=== PATIENT | female | born 1935 | race Caucasian/White ===

== ENCOUNTER 2017-03-18 12:20 | Inpatient (IN) ==
[2017-03-18] MEDS ORDERED: NS 1,000 ML IV ONE (12:35)
[2017-03-18 13:14] LABS: URINE CULTURE NEEDED? NO; URINE MICRO REVIEW NEEDED? NO; URINE SOURCE CATH
[2017-03-18 13:17] LABS: BILIRUBIN URINE NEGATIVE (NEGATIVE); BLOOD URINE NEGATIVE (NEGATIVE); COLOR YELLOW; GLUCOSE URINE NEGATIVE (NEGATIVE); LEUKOCYTES URINE NEGATIVE (NEGATIVE); NITRITE URINE NEGATIVE (NEGATIVE); PROTEIN URINE 30 mg/dL (NEGATIVE); SP GRAVITY URINE 1.017; TURBIDITY URINE CLEAR (CLEAR); UROBILINOGEN URINE NORMAL (NORMAL)
[2017-03-18 13:19] LABS: UR EPITHELIAL CELLS <10 /HPF (<10); URINE BACTERIA NEGATIVE /HPF; URINE RBC <10 /HPF (<10); URINE WBC <10 /HPF (<10)
--- NOTE | 2017-03-18 13:31 | Diag Imaging Result Doc PS360 ---
EXAM: CHEST-PORTABLE HISTORY: AMS COMPARISON: 03/16/2017 FINDINGS: Heart size appears within normal limits. The lungs appear clear. There is no pleural effusion or pneumothorax is identified. Central venous catheter remains in place. IMPRESSION: No evidence of acute disease. Electronically signed by Mandeep Rey 03/18/2017 1:29 PM
--- NOTE | 2017-03-18 13:38 | Diag Imaging Result Doc PS360 ---
EXAM: HEAD W/O CONTRAST HISTORY: AMS COMPARISON: 07/29/2016 FINDINGS: There are atrophic changes and chronic microvascular ischemic changes similar to the previous exam. 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 There is no indication of recent infarct, although acute infarcts may not be immediately visible. There is no evidence of hemorrhage mass effect or midline shift. IMPRESSION: Atrophic changes and chronic ischemic changes similar to 07/29/2016. No visible acute process. No hemorrhage or mass effect. Electronically signed by Mandeep Rey 03/18/2017 1:35 PM
[2017-03-18 13:40] LABS: UR AMPHETAMINES QUAL NONE DETECTED (NONE DETECT); UR BARBITUATES QUAL NONE DETECTED (NONE DETECT); UR BENZODIAZEPIN QUAL PRESUMPTIVE POSITIVE (NONE DETECT); UR CANNABINOIDS QUAL NONE DETECTED (NONE DETECT); UR COCAINE QUAL NONE DETECTED (NONE DETECT); UR METHADONE QUAL NONE DETECTED (NONE DETECT); UR OPIATES QUAL NONE DETECTED (NONE DETECT); UR OXYCODONE QUAL NONE DETECTED (NONE DETECT); UR PCP QUAL NONE DETECTED (NONE DETECT)
[2017-03-18 13:56] LABS: I-STAT BE 3 mmoll (-2-3); I-STAT GLUCOSE 159 mg/dL (70-105); I-STAT HCO3 27.5 mmoll (22.0-26.0); I-STAT HEMATOCRIT 43 % (38-51); I-STAT HEMOGLOBIN 14.6 g/dL (11.5-17.5); I-STAT IONIZED CALCIUM 1.23 mmoll (1.12-1.32); I-STAT K 3.4 mmoll (3.5-4.9); I-STAT PCO2 41.4 mmHg (35.0-45.0); I-STAT SO2 92 % (95-98); I-STAT SODIUM 140 mmoll (138-146); I-STAT TCO2 29 mmoll (23-27)
[2017-03-18 14:32] LABS: MANUAL DIFF NEEDED? NO
[2017-03-18 14:41] LABS: BASO% 0.2 % (0.0-0.8); EOS# 0.04 X1000 (0.0-0.7); EOS% 0.4 % (0.0-10.0); HEMATOCRIT 36.3 % (37.0-47.0); HEMOGLOBIN 11.7 g/dL (12.0-16.0); IMM GRAN# 0.03 X1000 (0.0-0.04); IMM GRAN% 0.3 % (0.0-0.5); LYMPH# 2.33 X1000 (1.2-3.4); MCHC 32.2 g/dL (33-37); MCV 93.1 FL (81-99); MONO% 12.6 % (1.7-9.3); MPV 11.8 FL (7.4-10.4); NEUT% 65.5 % (42.2-75.2); PLT 226 X1000 (130-400)
[2017-03-18 14:51] LABS: INR 1.13; PTT 28.8 Seconds (22.0-36.0)
[2017-03-18 14:58] LABS: ALBUMIN 3.3 g/dL (3.5-5.0); CALCIUM 9.1 mg/dL (8.8-10.2); POTASSIUM 3.2 mmol/L (3.5-5.1); TOTAL BILIRUBIN 0.46 mg/dL (0.20-1.00); TOTAL PROTEIN 6.9 g/dL (6.3-8.3)
[2017-03-18] MEDS ORDERED: KLOR-CON PO ONE (15:51)
--- NOTE | 2017-03-18 15:58 | PROVIDER DOCUMENTATION ---
This chart was entered by Rose Manuel Scribe, acting as scribe for Jann Irizarry MD. HPI-Neurological Disorder - General Chief Complaint: Weakness Stated Complaint: WEAKNESS/AMS/ FAILURE TO THRIVE Time Seen by Provider: 03/18/17 12:29 Source: family Allergies/Adverse Reactions: Patient Allergies Allergy/AdvReac Type Severity Reaction Status Date / Time levofloxacin [From Levaquin] Allergy Mild ITCHING Verified 03/18/17 12:34 Home Medications: Home Medication List Medication Instructions Recorded Confirmed Last Taken Type Esomeprazole Magnesium 40 mg PO QAM 09/15/16 03/18/17 03/16/17 10:00 History Ramipril 2.5 mg PO BID 09/15/16 03/16/17 03/18/17 09:00 History Simvastatin 20 mg PO DAILY 09/15/16 03/18/17 03/16/17 10:00 History Isosorbide Mononitrate E.r. [Imdur] 30 mg PO DAILY #60 tablet 09/18/16 03/18/17 03/16/17 10:00 Rx Baclofen 10 mg PO BID #30 tablet 03/16/17 03/18/17 03/17/17 12:00 Rx Furosemide [Furosemide] 20 mg PO DAILY 03/16/17 03/18/17 03/17/17 11:00 History Amlodipine [Norvasc] 5 mg PO DAILY 03/18/17 03/18/17 03/18/17 09:00 History Clonazepam [Klonopin] 0.5 mg PO BID PRN PRN 03/18/17 03/18/17 03/18/17 09:00 History Esomeprazole [Nexium] 40 mg PO DAILY 03/18/17 03/18/17 Unknown History Gabapentin [Neurontin] 100 mg PO QAM 03/18/17 03/18/17 03/18/17 09:00 History Hydralazine [Apresoline] 25 mg PO TID 03/18/17 03/18/17 03/18/17 09:00 History - History of Present Illness-Neuro Nature of Presenting Problem: 81 yo WF is brought to ED with cc of lethargy, weakness, and AMS. reports pt was seen in this ED 3 days ago, diagnosed with dehydration, and sent home. Pt's condition has continued to worsen, and now she can no longer walk. EMS reports that pt was oriented x 1 and had to be carried. Pt has hx of non- Hodgkin's lymphoma for which she still has a port, but reports it has been in remission. Upon arrival to ED, pt is poorly responsive. Severity: reports: moderate, severe Onset/Duration: reports: 3 days ago (Pt was treated and released from here for dehydration. Symptoms worsening since then.) Timing: reports: still present, getting worse Context: reports: other (Pt no longer able to walk at all. Pt not fully oriented. Family reports this is deviation from baseline.) Character of Altered Mental Status: reports: disoriented, confused, decreased responsiveness. denies: combative Any recent trauma/injury?: reports: none Character of Deficits: reports: new weakness, decreased ability to stand, decreased ability to walk Cognitive Baseline: alert, oriented x3 Gait Baseline: uses a walker Recently seen or treated by another doctor?: Yes (Treated for dehydration 3 days ago in this ED. ) Review of Systems - Adult - REVIEW OF SYSTEMS - ADULT ROS:: ROS per family Constitutional: reports: fatique. denies: chills, fever Eyes: reports: no symptoms reported. denies: discharge, dry eyes Ears, Nose, Mouth & Throat: reports: no symptoms reported. denies: ear discharge, hoarseness Cardiovascular: reports: no symptoms reported. denies: edema, irregular heart rate Respiratory: reports: no symptoms reported. denies: cough, wheezing Gastrointestinal: reports: poor appetite. denies: vomiting Genitourinary: reports: no symptoms reported. denies: discharge, frequency Musculoskeletal: reports: muscle weakness Integumentary: reports: no symptoms reported. denies: hives, itching Neurological: reports: other (AMS, generalized weakness) Psychiatric: reports: no symptoms reported. denies: alcohol/drug dependence, emotional problems Endocrine: reports: no symptoms reported. denies: cold intolerance, heat intolerance Hematologic/Lymphatic: reports: no symptoms reported. denies: easy bruising, low blood count Allergic/Immunologic: reports: no symptoms reported. denies: asthma, eczema All Other Systems: Reviewed and Negative Past History - Adult - PAST MEDICAL HISTORY-ADULT Review of Records: reports: Old Records Reviewed, Nursing Assessment Review, Medications Reviewed Major Childhood Illnesses: reports: denies history Cardiovascular: reports: HTN, hyperlipidemia Respiratory: reports: pneumonia (frequent, aspiration) Gastrointestinal: reports: denies history Obstetrical/Gynecological: reports: denies history Genitourinary: reports: denies history Musculoskeletal: reports: chronic pain (back), intervertebral disc disease Neurological: reports: denies history Endocrine/Immune: reports: Diabetes Other Conditions: reports: other cancer (Non-Hodgkins Lymphoma) - PRIOR SURGERIES/PROCEDURES Surgical/Procedure History: reports: recent surgery, appendectomy, cholecystectomy, back/neck (recent back surgery) - IMMUNIZATION STATUS Childhood Immunizations: See Nurse Assessment Flu Vaccine: See Nurse Assessment - FAMILY HISTORY Family History: reviewed, not pertinent Physical Exam- Neurological - Physical Exam-Neuro Initial Vital Signs Reviewed: Yes General Appearance: lethargic, slow to respond Eye Exam: bilateral eye: normal inspection, PERRL HENMT: normocephalic/atraumatic, moist mucous membranes Head Injury: no evidence of injury Neck: full range of motion Respiratory: chest non-tender, lungs clear, normal breath sounds Cardiovascular: normal peripheral pulses, regular rate, rhythm, no edema Abdominal Exam: normal bowel sounds, non tender, soft Lymphatic: no adenopathy Extremity: negative: normal gait quality review trainer Exam: normal speech. negative: normal hearing, abnormal eye position, abnormal gag reflex, facial asymmetry, facial droop, facial paresthesias, facial weakness, tongue deviation to R, tongue deviation to L Coordination/Gait: abnormal gait (Pt cannot walk at all.) Motor/Sensory: no motor deficit, no sensory deficit. negative: no pronator drift Neurologic: grossly normal, no motor/sensory deficits Integumentary: normal color, normal turgor Psych/Mental Status: other (Pt is able to answer questions well but thought she was at [facility], [place].) - Glascow Coma Scale Best Eye Response: (4) open spontaneously Best Verbal Response: (5) oriented Best Motor Response: (6) obeys commands Total Glascow Score: 15 Progress - PLAN OF CARE/RESULTS Progress/Plan/Lab Results: Vital Signs - 8 hr 03/18/17 12:20 03/18/17 14:01 03/18/17 15:39 Temperature 98.7 F Pulse Rate 68 66 82 Respiratory Rate 16 22 Blood Pressure 151/72 131/62 136/60 O2 Sat by Pulse Oximetry 96 95 96 Laboratory Results - last 24 hr 03/18/17 03/18/17 03/18/17 12:49 12:55 12:55 WBC RBC Hgb Hct MCV MCH MCHC RDW Std Deviation Plt Count MPV Immature Gran % (Auto) Neut % (Auto) Lymph % (Auto) [place] % (Auto) Eos % (Auto) Baso % (Auto) Immature Gran # (Auto) Neut # (Auto) Lymph # (Auto) [place] # (Auto) Eos # (Auto) Baso # (Auto) PT INR PTT (Actin FS) POC pH 7.430 POC pCO2 41.4 POC pO2 62.0 POC HCO3 27.5 H POC Total CO2 29 H POC Base Excess 3 POC O2 Saturation 92 L POC Hemoglobin 14.6 POC Hematocrit 43 POC Sodium 140 POC Potassium 3.4 L POC Glucose 159 H POC Ioniz Calcium 1.23 Sodium Potassium Chloride Carbon Dioxide Anion Gap BUN Creatinine Estimated GFR/1.73 m2 BUN/Creatinine Ratio Glucose Calculated Osmolality Calcium Total Bilirubin AST ALT Alkaline Phosphatase Creatine Kinase Troponin T Total Protein Albumin Globulin Albumin/Globulin Ratio Lipase Plasma Lactate Urine Source CATH Urine Color YELLOW Urine Turbidity CLEAR Urine pH 6.0 Ur Specific [place] 1.017 Urine Protein 30 A Ur Glucose (Stick) NEGATIVE Ur Ketones (Stick) NEGATIVE Urine Blood NEGATIVE Urine Nitrite NEGATIVE Urine Bilirubin NEGATIVE Urobilinogen Dipstick NORMAL Urine Leukocytes NEGATIVE Urine WBC (Auto) <10 Urine RBC (Auto) <10 U Epithel Cells (Auto) <10 Urine Bacteria (Auto) NEGATIVE Urine Opiates Screen NONE DETECTED Ur Oxycodone Screen NONE DETECTED Ur Methadone, Qual NONE DETECTED Ur Barbiturates Screen NONE DETECTED Ur Phencyclidine Scrn NONE DETECTED Ur Amphetamines Screen NONE DETECTED U Benzodiazepines Scrn PRESUMPTIVE POSITIVE A Urine Cocaine Screen NONE DETECTED U Cannabinoids Screen NONE DETECTED Plasma/Serum Ethyl Alc 03/18/17 03/18/17 03/18/17 13:40 14:20 14:20 WBC 11.09 H RBC 3.90 L Hgb 11.7 L Hct 36.3 L MCV 93.1 MCH 30.0 MCHC 32.2 L RDW Std Deviation 13.5 Plt Count 226 MPV 11.8 H Immature Gran % (Auto) 0.3 Neut % (Auto) 65.5 Lymph % (Auto) 21.0 [place] % (Auto) 12.6 H Eos % (Auto) 0.4 Baso % (Auto) 0.2 Immature Gran # (Auto) 0.03 Neut # (Auto) 7.27 H Lymph # (Auto) 2.33 [place] # (Auto) 1.40 H Eos # (Auto) 0.04 Baso # (Auto) 0.02 PT INR PTT (Actin FS) POC pH POC pCO2 POC pO2 POC HCO3 POC Total CO2 POC Base Excess POC O2 Saturation POC Hemoglobin POC Hematocrit POC Sodium POC Potassium POC Glucose POC Ioniz Calcium Sodium Potassium Chloride Carbon Dioxide Anion Gap BUN Creatinine Estimated GFR/1.73 m2 BUN/Creatinine Ratio Glucose Calculated Osmolality Calcium Total Bilirubin AST ALT Alkaline Phosphatase Creatine Kinase Troponin T Total Protein Albumin Globulin Albumin/Globulin Ratio Lipase Plasma Lactate 1.3 Urine Source Urine Color Urine Turbidity Urine pH Ur Specific [place] Urine Protein Ur Glucose (Stick) Ur Ketones (Stick) Urine Blood Urine Nitrite Urine Bilirubin Urobilinogen Dipstick Urine Leukocytes Urine WBC (Auto) Urine RBC (Auto) U Epithel Cells (Auto) Urine Bacteria (Auto) Urine Opiates Screen Ur Oxycodone Screen Ur Methadone, Qual Ur Barbiturates Screen Ur Phencyclidine Scrn Ur Amphetamines Screen U Benzodiazepines Scrn Urine Cocaine Screen U Cannabinoids Screen Plasma/Serum Ethyl Alc 03/18/17 03/18/17 03/18/17 14:20 14:20 14:20 WBC RBC Hgb Hct MCV MCH MCHC RDW Std Deviation Plt Count MPV Immature Gran % (Auto) Neut % (Auto) Lymph % (Auto) [place] % (Auto) Eos % (Auto) Baso % (Auto) Immature Gran # (Auto) Neut # (Auto) Lymph # (Auto) [place] # (Auto) Eos # (Auto) Baso # (Auto) PT 12.0 H INR 1.13 PTT (Actin FS) 28.8 POC pH POC pCO2 POC pO2 POC HCO3 POC Total CO2 POC Base Excess POC O2 Saturation POC Hemoglobin POC Hematocrit POC Sodium POC Potassium POC Glucose POC Ioniz Calcium Sodium 134 L Potassium 3.2 L Chloride 96 L Carbon Dioxide 28 Anion Gap 10 BUN 20 Creatinine 0.9 Estimated GFR/1.73 m2 60 BUN/Creatinine Ratio 22 Glucose 139 H Calculated Osmolality 273 Calcium 9.1 Total Bilirubin 0.46 AST 11 ALT 5 L Alkaline Phosphatase 101 Creatine Kinase 43 Troponin T 0.024 Total Protein 6.9 Albumin 3.3 L Globulin 3.6 Albumin/Globulin Ratio 0.9 Lipase 12 L Plasma Lactate Urine Source Urine Color Urine Turbidity Urine pH Ur Specific [place] Urine Protein Ur Glucose (Stick) Ur Ketones (Stick) Urine Blood Urine Nitrite Urine Bilirubin Urobilinogen Dipstick Urine Leukocytes Urine WBC (Auto) Urine RBC (Auto) U Epithel Cells (Auto) Urine Bacteria (Auto) Urine Opiates Screen Ur Oxycodone Screen Ur Methadone, Qual Ur Barbiturates Screen Ur Phencyclidine Scrn Ur Amphetamines Screen U Benzodiazepines Scrn Urine Cocaine Screen U Cannabinoids Screen Plasma/Serum Ethyl Alc Orders Category Date Time Status Cardiac Monitoring DIRECTED Care 03/18/17 12:34 Active Finger Stick Blood Sugar (ED) DIRECTED Care 03/18/17 12:34 Active Burrell Cath Insertion ORDERED Care 03/18/17 12:58 Completed Saline Loc NOW Care 03/18/17 12:34 Active CHEST-PORTABLE [RAD] Stat Exams 03/18/17 12:34 Completed HEAD W/O CONTRAST [CT] Stat Exams 03/18/17 12:34 Completed ALCOHOL BLOOD Stat Lab 03/18/17 14:20 Completed BLOOD CULTURE [BLDCUL] Stat Lab 03/18/17 13:40 Results CBC WITH ELECTRONIC DIFF [HEME] Stat Lab 03/18/17 14:20 Completed CK PROFILE [SP CHEM] Stat Lab 03/18/17 14:20 Completed COMPREHENSIVE METABOLIC PANEL [CHEM] Stat Lab 03/18/17 14:20 Completed I-STAT 8 [RESP] Routine Lab 03/18/17 12:49 Completed LACTATE, PLASMA [CHEM] Stat Lab 03/18/17 13:40 Completed LIPASE [CHEM] Stat Lab 03/18/17 14:20 Completed PROTIME WITH INR [COAG] Stat Lab 03/18/17 14:20 Completed PTT [COAG] Stat Lab 03/18/17 14:20 Completed TROPONIN T Stat Lab 03/18/17 14:20 Completed URINALYSIS W/POSS RFLX CULT-1 [URINALYSIS] Stat Lab 03/18/17 12:55 Completed URINE DRUG SCREEN Stat Lab 03/18/17 12:55 Completed 0.9% Sodium Chloride Inj [Ns] 1,000 ml Med 03/18/17 12:35 Active IV 150 mls/hr Potassium Chloride E.r. [Klor-Con] Med 03/18/17 15:51 Discontinued 40 meq PO NOW ONE Pulse Oximetry Stat Oth 03/18/17 12:34 Active EKG [EKG] Stat Ther 03/18/17 12:34 Ordered Result Diagrams: 03/18/17 14:20 03/18/17 14:20 - EKG 1 Time of EKG reading by physician:: 14:31 EKG Read and Signed by:: Jann Irizarry EKG Interpretation (*Must complete 3 of following elements*): Abnormal (LVH with repolarization abnormality. Inferior infarct, age undetermined. Anteroseptal infarct, age undetermined.) Rate: 67 Rhythm: Sinus QRS: LVH (with repolarization abnormality) - XRAY 1 XRAY Study: Chest Impression: Normal ( FINDINGS: Heart size appears within normal limits. The lungs appear clear. There is no pleural effusion or pneumothorax is identified. Central venous catheter remains in place.) XRAY Interpretation: NAD (per radiology) - CT/MRI 1 CT Study: Head Impression: Abnormal (There are atrophic changes and chronic microvascular ischemic changes similar to the previous exam. 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 There is no indication of recent infarct, although acute infarcts may not be immediately visible.) CT Results: NAD (per radiology) - CONSULTS/PCP/HOSPITALIST Notification #1 *Consult/PCP/Hospitalist*: Dr. Retana Time Discussed: 15:57 Reason/Comments: Admit to Dr. Retana Consult Disposition: Admit Departure - Departure Time of Disposition Decision: 15:57 DIAGNOSIS: Altered mental status, Hypokalemia, Generalized weakness Disposition: ADMITTED INPATIENT 09 Certified Medical Emergency: Emergent Condition: Stable Referrals and Follow-Ups: Rahat Mcginnis MD [Primary Care Provider] - - Critical Care Note This patient required my direct & personal management of CC.: No Attestation - Physician/ SHADI Attestation Patient care was provided by Advanced Practice Provider:: No This chart was documented by the indicated scribe, (Rose Manuel Scribe) and accurately reflects the services I performed and decisions made by me, Jann Irizarry MD, as attested by the provider's signature.
--- NOTE | 2017-03-18 17:04 | EKG Report ---
Test Performed on : 03/18/2017 2:31:29 PM Test Reason : AMS Blood Pressure : / mmHG Vent. Rate : 067 BPM Atrial Rate : 067 BPM P-R Int : 172 ms QRS Dur : 098 ms QT Int : 444 ms P-R-T Axes : 077 -27 137 degrees QTc Int : 469 ms Normal sinus rhythm. Left ventricular hypertrophy with repolarization abnormality Inferior infarct , age undetermined Anteroseptal infarct , age undetermined Abnormal ECG When compared with ECG of 15-SEP-2016 02:16, Vent. rate has increased BY 28 BPM Left bundle branch block is no longer present Anteroseptal infarct is now present Inferior infarct is now present Unconfirmed Result
--- NOTE | 2017-03-18 17:18 | HISTORY AND PHYSICAL ---
PRIMARY CARE PHYSICIAN: Dr. Mcginnis. CHIEF COMPLAINT: Weakness/AMS. HISTORY OF PRESENT ILLNESS: Mrs. Pompa is a 81-year-old female with a history of non- Hodgkin's lymphoma, in remission. She also has a history of hypertension, hyperlipidemia, chronic back pain, diabetes mellitus, who presents from home with multiple days of worsening mental status and weakness. Patient is unable to give any type of history at this time secondary to mental status. History is obtained after talking with the family who is at the bedside and chart review. Apparently she has had continuous worsening of her mental status, to the point of complete confusion and she now and just lays in bed or sits in a chair all day. She is confused on. Her felt like he could not care for her any more so he brought her here to the ER. There has not been any chills or fever. She has not been complaining of anything with the exception of her chronic back and neck pain. When she got to the ER today she had a head CT done which showed chronic changes but nothing acute. Her chest x-ray was also negative for acute process. She is clearly confused but she follows commands with global weakness but no acute focal deficits. Her laboratory data shows some mild hypokalemia and hyponatremia but otherwise unremarkable. There does not appear to be any type of infection at this time. We are now going to admit her for further treatment and evaluation. PAST MEDICAL HISTORY: 1. Non-Hodgkin's lymphoma, in remission. 2. Hypertension. 3. Hyperlipidemia. 4. Diabetes mellitus. 5. Chronic pain. 6. Coronary artery disease. 7. GERD. 8. Paroxysmal atrial fibrillation. PAST SURGICAL HISTORY: She has had appendectomy, cholecystectomy, back and neck surgery. SOCIAL HISTORY: Patient lives at home with her . Apparently she has quite frequent falls. She quit smoking some time ago. There is no alcohol or drug use. REVIEW OF SYSTEMS: Unable to be obtained. FAMILY HISTORY: Noncontributory. ALLERGIES: To Levaquin. HOME MEDICATIONS: Norvasc 5 mg daily, baclofen 10 mg p.o. b.i.d., Klonopin 0.5 mg p.o. b.i.d., Nexium 40 mg daily, magnesium 40 mg a.m., Lasix 20 mg daily, Neurontin 100 mg a.m., Apresoline 25 mg t.i.d., isosorbide mononitrate 30 mg daily, ramipril 2.5 mg b.i.d., simvastatin 20 mg daily. PHYSICAL EXAMINATION: VITAL SIGNS: Blood pressure is 136/60, heart rate 82, respiratory rate 22, O2 saturation 96% on room air, temperature is 98.7 degrees. GENERAL: This is a frail and elderly appearing, 81-year-old female, lying in hospital bed, no acute distress. NEUROLOGIC: The patient is awake with her eyes open but she does not answer any orientation questions correctly. She is able to tell us her 1st name. She follows commands without any focal deficits. She does have generalized weakness. HEENT: Head is atraumatic, normocephalic. Pupils are equal, round, and reactive to light. Oral mucosa is dry. Trachea is midline. No JVD or carotid bruits. CHEST: Diminished at the bases but otherwise clear to auscultation bilaterally. CV: Regular rate and rhythm. S1, S2 is noted. There is a 1/6 murmur appreciated. GI: Soft, nondistended, nontender. Bowel sounds positive. EXTREMITIES: Without edema, clubbing, or cyanosis. Pulses are diminished but palpable bilaterally. DIAGNOSTIC DATA: Head CT shows atrophic changes and chronic ischemic changes but nothing acute. Chest x-ray is negative for acute process. WBC 11.09, hemoglobin 11.7, hematocrit 36.3, platelet count 226,000. INR 1.13. ABG, pH 7.43, CO2 41, O2 62, bicarb 27.5. Sodium 134, potassium 3.2, chloride 96, CO2 28, anion gap 10, BUN 20, creatinine 0.9, glucose 139, calcium 9.1, bilirubin 0.46, AST 11, ALT 5, alkaline phosphatase 101. CK 43. Troponin 0.024. Albumin 3.3. Lipase 12. Cath urine is unremarkable. She is positive for benzodiazepines. ASSESSMENT AND PLAN: 1. Toxic metabolic encephalopathy: Possibly a combination of medications on top of dehydration. There does not appear to be any infectious nidus at this point and head CT does not show anything acute. We will continue treatment of anything underlying metabolically that we find. For now that would consist of fluids. 2. Hyponatremia/hypochloremia: Likely hypovolemic. Will check urine studies and hydrate. 3. Hypokalemia. This has been replaced in the ER. Will also be sure to check a magnesium. 4. Failure to thrive: Will consult physical therapy and social work as the patient may need long- term care. 5. Hypertension: Chronic and stable. Continue home medications. 6. Non-Hodgkin's lymphoma: Aware. 7. Hyperlipidemia: Chronic and stable. Continue home medications. 8. Gastroesophageal reflux disease: Chronic and stable. Continue home medications. 9. Deep vein thrombosis prophylaxis with Lovenox. 10. Coronary artery disease: Patient denies any chest pain or shortness of breath. We will continue to monitor telemetry. Dictated by JEFFREY Richardson for Francisco Javier Medina MD cc: JEFFREY Richardson MD Michael C. Donham, MD
[2017-03-18] MEDS: APRESOLINE PO SCH (21:59)
[2017-03-19 05:09] LABS: HEMATOCRIT 37.6 % (37.0-47.0); HEMOGLOBIN 11.8 g/dL (12.0-16.0); MCH 29.9 PG (27-31); MCHC 31.4 g/dL (33-37); MCV 95.2 FL (81-99); MPV 12.2 FL (7.4-10.4); RBC 3.95 XMIL (4.2-5.4)
[2017-03-19 05:35] LABS: AGAP 14; BUN 17 mg/dL (8-22); CHLORIDE 103 mmol/L (98-107); COSMO 284; POTASSIUM 3.8 mmol/L (3.5-5.1); SODIUM 142 mmol/L (136-145); TCO2 25 mmol/L (25-35)
[2017-03-19] MEDS: PRILOSEC PO SCH (06:27)
[2017-03-19] MEDS ORDERED: NORVASC PO SCH (09:00)
[2017-03-19] MEDS: ZOCOR PO SCH (09:21)
[2017-03-19] MEDS: IMDUR PO SCH (09:21)
[2017-03-19] MEDS: NEURONTIN PO SCH (09:21)
[2017-03-19] MEDS: APRESOLINE PO SCH ×4 (09:24→17:24)
--- NOTE | 2017-03-19 11:35 | PROGRESS NOTE ---
DATE: 03/19/2017 SUBJECTIVE: This patient looks better today. She is still complaining about neck pain. She is more alert and she is more oriented. Family members at the bedside. OBJECTIVE: Vital Signs: Temperature 98.2 degrees, pulse 66, respiratory rate 16, blood pressure 171/62, oxygen saturation 98 on 2 L of nasal cannula. HEENT: Head normocephalic. No trauma. PERRLA. Neck: Not supple. It is a little bit rigid and painful to palpation, central trachea. No masses. Chest: Clear to auscultation. No wheezing. No rales. Cardiovascular: RRR. Abdomen: Soft, nontender, nondistended. Positive bowel sounds. Extremities: No edema. No clubbing. No cyanosis. Decreased muscle mass. Neurological: The patient is alert. She is oriented x3. No focal neurological deficits but extreme weakness. LABORATORY: WBC 9.8, hemoglobin 11.8, hematocrit 37.6, platelets 235,000. Sodium 142, potassium 3.8, chloride 103, bicarbonate 25, BUN 17. Creatinine 0.8, glucose 83, calcium 9. ASSESSMENT AND PLAN: 1. Toxic metabolic encephalopathy likely related to dehydration and benzodiazepine treatment. I do not think this patient has an infection. We will continue to monitor. 2. Hyponatremia and hypokalemia resolved. 3. Hyperlipidemia. Continue with simvastatin. 4. Hypertension. The blood pressure has been elevated, but this patient has been getting normal saline. I will stop the normal saline to see how she does and I will continue her home medications. 5. Neck pain. I can feel some kind of rigidity and pain with movement. I will ask for an x-ray AP and lateral. 6. GERD. Continue with home medication. 7. DVT prophylaxis with Lovenox. 8. History of coronary artery disease. This patient denies chest pain or shortness of breath. We will continue to monitor with telemetry. cc: Francisco Javier Medina MD
--- NOTE | 2017-03-19 11:53 | Diag Imaging Result Doc PS360 ---
CERVICAL SPINE 2-VIEWS - 03/19/2017 INDICATION: Neck pain TECHNIQUE: COMPARISON: 09/15/2016 FINDINGS: Stable right chest port. Detail is very poor particularly below the C4 level. IMPRESSION: Very poor exam. Electronically signed by Ruddy Viveros 03/19/2017 11:50 AM
[2017-03-20 06:25] LABS: HEMATOCRIT 37.7 % (37.0-47.0); HEMOGLOBIN 12.1 g/dL (12.0-16.0); MCH 29.8 PG (27-31); MCHC 32.1 g/dL (33-37); MCV 92.9 FL (81-99); RBC 4.06 XMIL (4.2-5.4)
[2017-03-20 06:46] LABS: AGAP 15; BUN 13 mg/dL (8-22); CALCIUM 9.1 mg/dL (8.8-10.2); CHLORIDE 99 mmol/L (98-107); COSMO 278; POTASSIUM 3.9 mmol/L (3.5-5.1); SODIUM 139 mmol/L (136-145); TCO2 25 mmol/L (25-35)
[2017-03-20] MEDS: PRILOSEC PO SCH (07:30)
[2017-03-20] MEDS: TYLENOL PO PRN (07:30)
[2017-03-20] MEDS: NEURONTIN PO SCH ×2 (07:50→09:55)
[2017-03-20] MEDS: IMDUR PO SCH (09:55)
[2017-03-20] MEDS: ZOCOR PO SCH (09:55)
[2017-03-20] MEDS: NORVASC PO SCH ×2 (09:56→22:58)
[2017-03-20] MEDS: APRESOLINE PO SCH ×3 (10:00→16:56)
--- NOTE | 2017-03-20 16:19 | PROGRESS NOTE ---
DATE: 03/20/2017 SUBJECTIVE: This patient is resting comfortably on the bed, she looks a little bit better today. She is more awake and more oriented. No family members at the bedside. OBJECTIVE: Vital Signs: Temperature 98 degrees, pulse 80, respiratory rate 18, blood pressure 180/66, oxygen saturation 93% on room air. HEENT: Head normocephalic. No trauma. PERRLA. Neck: Not supple. It is a little bit rigid and painful to palpation. Central trachea. No masses. Chest: Clear to auscultation. No wheezing. No rales. Cardiovascular: RRR. Abdomen: Soft, nontender, nondistended. Positive bowel sounds. Extremities: No edema. No clubbing. No cyanosis. Decreased muscle mass. Neurological: The patient is alert. She is oriented x3. No focal neurological deficit but she has generalized weakness. LABORATORY: WBC 12.8, hemoglobin 12.1, hematocrit 37.7, platelets 233,000. Sodium 139, potassium 3.9, chloride 99, bicarbonate 25, BUN 13, creatinine 0.8, glucose 112, calcium 9.1. ASSESSMENT AND PLAN: 1. Toxic metabolic encephalopathy likely related to dehydration and benzodiazepine treatment. I do not think this patient has an infection. We will continue to monitor. 2. Hyponatremia and hypokalemia, resolved. 3. Hyperlipidemia. Continue with simvastatin. 4. Hypertension. Blood pressure has been elevated. I increased the amount of amlodipine from 5 mg daily to 5 mg twice a day, and hydralazine from 25 mg twice a day to 50 three times a day. We will monitor. 5. Neck pain. As per the patient, this is a little bit better. I will continue with the same treatment. 6. Gastroesophageal reflux disease. Continue with home medication. 7. Deep venous thrombosis prophylaxis with Lovenox. 8. History of coronary artery disease. At this moment this patient is not having chest pain or shortness of breath. We will continue to monitor this patient in telemetry. cc: Francisco Javier Medina MD
[2017-03-20] MEDS: HUMULIN R SUBQ SCH ×2 (16:34→22:24)
[2017-03-21] MEDS: HUMULIN R SUBQ SCH ×3 (06:10→17:33)
[2017-03-21] MEDS: PRILOSEC PO SCH (06:10)
[2017-03-21 06:14] LABS: HEMATOCRIT 35.9 % (37.0-47.0); HEMOGLOBIN 11.6 g/dL (12.0-16.0); MCH 29.7 PG (27-31); MCHC 32.3 g/dL (33-37); MCV 92.1 FL (81-99); MPV 12.1 FL (7.4-10.4); RBC 3.9 XMIL (4.2-5.4)
[2017-03-21 07:12] LABS: CALCIUM 8.9 mg/dL (8.8-10.2); POTASSIUM 3.3 mmol/L (3.5-5.1)
[2017-03-21] MEDS: TYLENOL PO PRN (07:21)
[2017-03-21] MEDS ORDERED: KLOR-CON PO ONE (07:44)
[2017-03-21] MEDS: APRESOLINE PO SCH ×3 (09:17→17:32)
[2017-03-21] MEDS: IMDUR PO SCH (09:18)
[2017-03-21] MEDS: NEURONTIN PO SCH (09:18)
[2017-03-21] MEDS: ZOCOR PO SCH (09:18)
[2017-03-21] MEDS: NORVASC PO SCH ×2 (09:18→23:59)
[2017-03-21] MEDS: MIRALAX PO SCH (09:19)
--- NOTE | 2017-03-21 11:18 | PROGRESS NOTE ---
DATE: 03/21/2017 SUBJECTIVE: This patient is lying on the bed. She looks comfortable. She is still complaining of neck pain. She is more awake and alert today, and she is more oriented as well. No family members at the bedside water. My plan is to keep this patient until Wednesday and hopefully get a rehab center for her. OBJECTIVE: Vital Signs: Temperature 98.4 degrees, pulse 73, respiratory rate 20, blood pressure 158/57, oxygen saturation 95% on room air. HEENT: Head normocephalic. No trauma. PERRLA. Neck: Painful to palpation and mobilization. Central trachea. Chest: Clear to auscultation. No wheezing. No rales. Cardiovascular: RRR. Abdomen: Soft, nontender, nondistended. Positive bowel sounds. Extremities: No edema. No clubbing. No cyanosis. Decreased muscle mass. Neurological Examination: The patient is alert and oriented x3. No focal deficits. She has generalized weakness. Laboratory Data: WBC 11.8, hemoglobin 11.6, hematocrit 35.9, platelets 230,000. Sodium 137, potassium 3.3, chloride 97, bicarbonate 24, BUN 21, creatinine 0.9, glucose 103, calcium 8.9. ASSESSMENT AND PLAN: 1. Toxic metabolic encephalopathy, likely related with dehydration and benzodiazepine treatment. I do not think this patient has an infection. We will continue to monitor. 2. Volume depletion, resolved. 3. Hyponatremia, resolved. 4. Hypokalemia. I will replace the potassium today. 5. Hyperlipidemia. Continue with simvastatin. 6. Hypertension, better controlled. We will continue with the same management. 7. Neck pain. I will ask for a CT scan of the neck today without contrast. 8. Gastroesophageal reflux disease. Continue with home medication. 9. Deep venous thrombosis prophylaxis with Lovenox. 10. History of coronary artery disease. She is not having chest pain or shortness of breath. We will continue with the same management for now and monitoring this patient with telemetry. cc: Francisco Javier Medina MD
--- NOTE | 2017-03-21 14:52 | Diag Imaging Result Doc PS360 ---
EXAM: NECK W/O CONTRAST HISTORY: pain when swallowing TECHNIQUE: CT of the neck without contrast COMMENT: The nasopharynx is unremarkable. There is some beam hardening artifact from the patient's hearing aids. There is also artifact arising from dental work. The salivary glands appear to be symmetrical. The epiglottis is not enlarged. There is some prominent nodes in the aorticopulmonary window. The right thyroid lobe is enlarged and inhomogeneous. The oropharynx and hypopharynx are unremarkable otherwise. No acute pulmonary abnormalities are present in the visualized portion of the chest. There is apical scarring bilaterally. IMPRESSION: No definite visceral abnormalities. Enlarged right thyroid lobe. Electronically signed by Evaristo Yarbrough 03/21/2017 2:49 PM
[2017-03-22] MEDS: HUMULIN R SUBQ SCH ×3 (00:03→11:11)
[2017-03-22] MEDS: PRILOSEC PO SCH (06:18)
[2017-03-22 06:19] LABS: MANUAL DIFF NEEDED? NO
[2017-03-22 06:29] LABS: BASO% 0.1 % (0.0-0.8); EOS# 0.17 X1000 (0.0-0.7); EOS% 1.6 % (0.0-10.0); HEMATOCRIT 35.7 % (37.0-47.0); HEMOGLOBIN 11.3 g/dL (12.0-16.0); IMM GRAN# 0.02 X1000 (0.0-0.04); IMM GRAN% 0.2 % (0.0-0.5); LYMPH# 2.68 X1000 (1.2-3.4); LYMPH% 25.3 % (20.5-51.1); MCH 29.4 PG (27-31); MCHC 31.7 g/dL (33-37); MONO# 1.29 X1000 (0.11-0.59); MONO% 12.2 % (1.7-9.3); MPV 11.6 FL (7.4-10.4); NEUT% 60.6 % (42.2-75.2); PLT 265 X1000 (130-400); RBC 3.84 XMIL (4.2-5.4)
[2017-03-22 07:09] LABS: CALCIUM 8.9 mg/dL (8.8-10.2); POTASSIUM 4.2 mmol/L (3.5-5.1)
[2017-03-22 07:24] VITALS: BP 162/58
[2017-03-22] MEDS: MIRALAX PO SCH (08:56)
[2017-03-22] MEDS: NORVASC PO SCH (08:57)
[2017-03-22] MEDS: IMDUR PO SCH (08:57)
[2017-03-22] MEDS: APRESOLINE PO SCH ×2 (08:57→14:00)
[2017-03-22] MEDS: NEURONTIN PO SCH (08:57)
[2017-03-22] MEDS: TYLENOL PO PRN (08:58)
[2017-03-22] MEDS: ZOCOR PO SCH (08:58)
--- NOTE | 2017-03-22 11:27 | DISCHARGE SUMMARY ---
ADMISSION DATE: 03/18/2017 DISCHARGE DATE: 03/22/2017 CONSULTATIONS: None. PERTINENT PROCEDURES: 1. Head CT show atrophic changes, chronic ischemic changes similar to 07/29/2016. No visible acute process. No hemorrhage or mass effect. 2. Cervical spine x-ray showed a stable right chest port, detail very poor, particularly below C4 level. 3. Neck CT showed no definite visceral abnormalities, enlarged right thyroid lobe. DISCHARGE DIAGNOSES: 1. Toxic metabolic encephalopathy secondary to dehydration and benzodiazepine treatment, resolved. 2. Fluid volume depletion, resolved. 3. Hyponatremia, resolved. 4. Hypokalemia, resolved. 5. Hyperlipidemia. Continue statin. 6. Hypertension. Better controlled. 7. Neck pain. CT did not show anything acute. 8. Gastroesophageal reflux disease. Continue with PPI. 9. Coronary artery disease. Stable. 10. Non-Hodgkin's lymphoma history, in remission. HOSPITAL COURSE: Ms. Pompa is a 81-year-old female with a history of non-Hodgkin's lymphoma in remission, hypertension, hyperlipidemia, diabetes mellitus, chronic pain, coronary artery disease, GERD, paroxysmal atrial fibrillation. Patient presented from home to the ED with multiple days of worsening mental status and weakness. Per family report, her mental status worsened to the point of complete confusion and she would just lie in bed or sit in a chair all day. The patient had a head CT in the ED that showed chronic changes but nothing acute. Chest x- ray was negative for acute process. Laboratory data showed mild hypokalemia and hyponatremia but otherwise unremarkable. There did not appear to be any infectious processes. The patient was admitted for toxic metabolic encephalopathy. Combinations of medications on top of dehydration. She was started on IV fluids. Head CT was negative. As well, physical therapy was consulted for failure to thrive. The patient continued to complain of neck pain. She had a cervical spine x- ray that was a poor exam. She underwent a CT of the neck that did not show anything acute. The patient did become more awake and alert as well as oriented. She was able to work with physical therapy. Senior Scientist was contacted for rehab placement. The patient will be sent to [facility] today. VITAL SIGNS: Temperature is 98.1 degrees, heart rate 63, respirations 16, blood pressure 102/58, O2 is 95% on room air. DISCHARGE DIET: Regular. DISCHARGE MEDICATIONS: As per Dr. Retana. Please see MAR. FOLLOWUP: The patient will be discharged to [facility] rehab. She can follow up with her primary care physician, Dr. Rahat Mcginnis in 2 weeks. Patient can return to the ED for any worsening of symptoms. DISCHARGE TIME: Thirty minutes. Dictated by JEFFREY Woodard for Francisco Javier Medina MD cc: MD Francisco Javier Ortiz MD
== END 2017-03-22 15:42 ==
LOC: ED 12:20 → 4N 17:26
PROVIDERS: ATTEND Internal Medicine

== ENCOUNTER 2017-04-19 10:14 | Inpatient (IN) ==
[2017-04-19] MEDS ORDERED: NS 1,000 ML IV ONE ×2 (10:35→15:21)
[2017-04-19] MEDS ORDERED: NARCAN IV ONE (10:38)
[2017-04-19 10:45] LABS: MANUAL DIFF NEEDED? NO
[2017-04-19 10:50] LABS: ALLEN TEST YES; BLOOD TYPE ARTERIAL; DRAW SITE R RADIAL; METHB 1.3 % (0.0-1.5); O2(CT) 13.7 mL/dL (15.0-23.0); PCO2(98.6) 47 mmHg (35-45); PO2(98.6) 74 mmHg (60-100); SAMPLE BLOOD; SAO2 95.8 % (95.0-100.0); THB 10.3 g/dL (11.5-17.4); pH(98.6) 7.39 (7.35-7.45)
[2017-04-19 10:51] LABS: URINE MICRO REVIEW NEEDED? NO; URINE SOURCE CLEAN CATCH
[2017-04-19 10:51] LABS: MODALITY ROOM AIR
[2017-04-19 10:51] LABS: BASO% 0.2 % (0.0-0.8); EOS# 0.09 X1000 (0.0-0.7); HEMATOCRIT 33.9 % (37.0-47.0); HEMOGLOBIN 10.6 g/dL (12.0-16.0); LYMPH# 3.06 X1000 (1.2-3.4); LYMPH% 33.6 % (20.5-51.1); MCH 29.3 PG (27-31); MCHC 31.3 g/dL (33-37); MCV 93.6 FL (81-99); MONO% 8.8 % (1.7-9.3); MPV 11.7 FL (7.4-10.4); NEUT% 56.4 % (42.2-75.2); PLT 261 X1000 (130-400); RBC 3.62 XMIL (4.2-5.4)
[2017-04-19 11:02] LABS: BILIRUBIN URINE NEGATIVE (NEGATIVE); BLOOD URINE NEGATIVE (NEGATIVE); COLOR YELLOW; GLUCOSE URINE NEGATIVE (NEGATIVE); LEUKOCYTES URINE MODERATE (NEGATIVE); NITRITE URINE NEGATIVE (NEGATIVE); PH URINE 5.5; PROTEIN URINE TRACE mg/dL (NEGATIVE); SP GRAVITY URINE 1.017; TURBIDITY URINE CLEAR (CLEAR); UROBILINOGEN URINE NORMAL (NORMAL)
[2017-04-19 11:04] LABS: UR EPITHELIAL CELLS >10 /HPF (<10); URINE BACTERIA 1+ /HPF; URINE CULTURE NEEDED? YES; URINE RBC <10 /HPF (<10)
--- NOTE | 2017-04-19 11:12 | Diag Imaging Result Doc PS360 ---
CHEST-1 VIEW - 04/19/2017 INDICATION: aloc TECHNIQUE: COMPARISON: 03/18/2017 FINDINGS: Stable right chest port in good position. Heart size and pulmonary vascularity remain normal. Infiltrate IMPRESSION: No acute disease or change from prior. Electronically signed by Ruddy Viveros 04/19/2017 11:10 AM
[2017-04-19 11:13] LABS: ALBUMIN 3.3 g/dL (3.5-5.0); CALCIUM 8.9 mg/dL (8.8-10.2); POTASSIUM 5.1 mmol/L (3.5-5.1); TOTAL BILIRUBIN 0.24 mg/dL (0.20-1.00); TOTAL PROTEIN 6.3 g/dL (6.3-8.3)
[2017-04-19 11:13] LABS: UR AMPHETAMINES QUAL NONE DETECTED (NONE DETECT); UR BARBITUATES QUAL NONE DETECTED (NONE DETECT); UR BENZODIAZEPIN QUAL NONE DETECTED (NONE DETECT); UR CANNABINOIDS QUAL PRESUMPTIVE POSITIVE (NONE DETECT); UR COCAINE QUAL NONE DETECTED (NONE DETECT); UR METHADONE QUAL NONE DETECTED (NONE DETECT); UR OPIATES QUAL NONE DETECTED (NONE DETECT); UR OXYCODONE QUAL NONE DETECTED (NONE DETECT); UR PCP QUAL NONE DETECTED (NONE DETECT)
--- NOTE | 2017-04-19 11:17 | Diag Imaging Result Doc PS360 ---
EXAM: HEAD W/O CONTRAST HISTORY: aloc TECHNIQUE: COMPARISON: 03/18/2017 FINDINGS: No parenchymal hemorrhage. No epidural or subdural hematoma. No subarachnoid hemorrhage. No mass identified on this noncontrasted exam. No hydrocephalus. There is atrophy with chronic ischemic changes. There is fluid in each mastoid sinus. IMPRESSION: No hemorrhage. Atrophy with chronic microvascular ischemic changes. Electronically signed by Moisés Ramos 04/19/2017 11:15 AM
--- NOTE | 2017-04-19 11:23 | PROVIDER DOCUMENTATION ---
This chart was entered by Leyda Kellogg Scribe, acting as scribe for Anibal Fajardo MD. HPI-General Adult - General Chief Complaint: Unresponsive Stated Complaint: LETHARGIC/ HR IN 40s Time Seen by Provider: 04/19/17 10:19 Source: EMS, jail records Allergies/Adverse Reactions: Patient Allergies Allergy/AdvReac Type Severity Reaction Status Date / Time levofloxacin [From Levaquin] Allergy Mild ITCHING Verified 03/18/17 12:34 Home Medications: Home Medication List Medication Instructions Recorded Confirmed Last Taken Type Ramipril 2.5 mg PO BID 09/15/16 03/20/17 03/18/17 09:00 History Simvastatin 20 mg PO DAILY 09/15/16 03/18/17 03/16/17 10:00 History Isosorbide Mononitrate E.r. [Imdur] 30 mg PO DAILY #60 tablet 09/18/16 03/18/17 03/16/17 10:00 Rx Baclofen 10 mg PO BID #30 tablet 03/16/17 03/18/17 03/17/17 12:00 Rx Amlodipine [Norvasc] 5 mg PO DAILY 03/18/17 03/18/17 03/18/17 09:00 History Esomeprazole [Nexium] 40 mg PO DAILY 03/18/17 03/18/17 Unknown History Gabapentin [Neurontin] 100 mg PO QAM 03/18/17 03/18/17 03/18/17 09:00 History Acetaminophen [Tylenol] 650 mg PO Q6H PRN PRN #0 tablet 03/22/17 Unknown Rx Clonazepam [Klonopin] 0.5 mg PO BID PRN PRN #15 tablet 03/22/17 Unknown Rx Furosemide 20 mg PO Q48H #30 tablet 03/22/17 Unknown Rx Hydralazine [Apresoline] 50 mg PO TID #120 tablet 03/22/17 Unknown Rx Polyethylene Glycol 3350 [Miralax] 17 gm PO DAILY powder, packet 03/22/17 Unknown Rx - History of Present Illness -Gen Adult Nature of Presenting Problems: PT IS A 81YOF PRESENTING TO THE ED C/O UNRESPONSIVE. EMS REPORTS PT WAS UNRESPONSIVE UPON ARRIVAL. SNF STATED THEY WERE UNABLE TO WAKE PT AND SHE IS ONLY RESPONSIVE TO PAIN. PT GIVEN NARCAN WITHOUT RESOLUTION OF SYMPTOMS. NO OTHER COMPLAINTS NOTED AT THIS TIME Location of Pain/Injury: reports: none Pain Radiation: reports: no radiation Quality of Pain: reports: none Severity: reports: severe Onset/Duration: reports: just prior to arrival Timing: reports: still present Context/Activities at Onset: reports: light activity, sleep Modifying Factors: improves with: nothing Associated Symptoms: reports: sensory/motor loss, other. denies: back/neck pain , chest pain Similar Symptoms Previously?: No Recently seen or treated by another doctor?: No Review of Systems - Adult - REVIEW OF SYSTEMS - ADULT Constitutional: reports: no symptoms reported Eyes: reports: no symptoms reported Ears, Nose, Mouth & Throat: reports: no symptoms reported Cardiovascular: reports: see HPI, irregular heart rate. denies: edema, palpitations Respiratory: reports: no symptoms reported Gastrointestinal: reports: no symptoms reported Genitourinary: reports: no symptoms reported Musculoskeletal: reports: no symptoms reported Integumentary: reports: no symptoms reported Neurological: reports: no symptoms reported Psychiatric: reports: no symptoms reported Endocrine: reports: no symptoms reported Hematologic/Lymphatic: reports: no symptoms reported Allergic/Immunologic: reports: no symptoms reported All Other Systems: Reviewed and Negative Past History - Adult - PAST MEDICAL HISTORY-ADULT Review of Records: reports: Old Records Reviewed, Nursing Assessment Review, Medications Reviewed, Social history reviewed & non-contributory. Major Childhood Illnesses: reports: denies history Cardiovascular: reports: HTN, hyperlipidemia Respiratory: reports: pneumonia (frequent, aspiration) Gastrointestinal: reports: denies history Obstetrical/Gynecological: reports: denies history Genitourinary: reports: denies history Musculoskeletal: reports: chronic pain (back), intervertebral disc disease Neurological: reports: denies history Endocrine/Immune: reports: Diabetes Other Conditions: reports: other cancer (Non-Hodgkins Lymphoma) - PRIOR SURGERIES/PROCEDURES Surgical/Procedure History: reports: recent surgery, appendectomy, cholecystectomy, back/neck (recent back surgery) - IMMUNIZATION STATUS Childhood Immunizations: See Nurse Assessment Flu Vaccine: See Nurse Assessment - FAMILY HISTORY Family History: reviewed, not pertinent - SOCIAL HISTORY Smoking: non-smoker Living Situation: care facility Physical Exam-General - PHYSICAL EXAM-ADULT Initial Vital Signs Reviewed: Yes - CONSTITUTIONAL General Appearance: severe distress, other (UNRESPONSIVE) - EYES Eyes: pink conjunctivae, other (2MM NON-REACTIVE TO LIGHT) - HEAD, EARS, NOSE, MOUTH & THROAT HENMT: normocephalic/atraumatic, TMs normal, pharynx normal, other (DRY MUCOUSE MEMBRANES). negative: moist mucous membranes, normal ENT inspection - NECK Neck: normal inspection - RESPIRATORY Respiratory: lungs clear, normal breath sounds, no pleuratic chest pain, no respiratory distress, no accessory muscle use - CARDIOVASCULAR Cardiovascular: normal peripheral pulses, no edema, no gallop, no JVD, no murmur , bradycardia. negative: regular rate, rhythm - GASTROINTESTINAL (ABDOMEN) Abdominal Exam: normal bowel sounds, non tender, soft, no organomegaly, no pulsatile mass - LYMPHATIC Lymphatic: no adenopathy - MUSCULOSKELETAL Back Exam: normal inspection, no CVA tenderness, no vertebral tenderness Extremity: no pedal edema, no calf tenderness, normal capillary refill, pelvis stable. negative: normal range of motion, non-tender, normal gait, normal inspection - SKIN Integumentary: normal color, normal turgor, warm/dry - NEUROLOGIC Neurologic: manager audio II-XII nml as tested, grossly normal, no motor/sensory deficits - PSYCHIATRIC Psych/Mental Status: disoriented x 3, depressed affect Progress - PLAN OF CARE/RESULTS Progress/Plan/Lab Results: Vital Signs - 8 hr 04/19/17 10:23 04/19/17 10:30 Temperature 98.1 F Pulse Rate 45 L 44 L Respiratory Rate 17 7 L Blood Pressure 101/41 101/41 O2 Sat by Pulse Oximetry 96 97 Orders Category Date Time Status CHEST-1 VIEW [RAD] Stat Exams 04/19/17 10:32 Ordered HEAD W/O CONTRAST [CT] Stat Exams 04/19/17 10:32 Ordered ABG [RESP] Routine Lab 04/19/17 10:35 Ordered CBC WITH DIFF [HEME] Stat Lab 04/19/17 10:32 Ordered COMPREHENSIVE METABOLIC PANEL [CHEM] Stat Lab 04/19/17 10:40 Ordered TROPONIN T Stat Lab 04/19/17 10:40 Ordered URINALYSIS W/POSS RFLX CULT [URINALYSIS] Stat Lab 04/19/17 10:40 Ordered URINE DRUG SCREEN Stat Lab 04/19/17 10:40 Ordered 0.9% Sodium Chloride Inj [Ns] 1,000 ml Med 04/19/17 10:35 Active IV 999 mls/hr Naloxone [Narcan] Med 04/19/17 10:38 Discontinued 2 mg IV NOW ONE EKG [EKG] Stat Ther 04/19/17 10:32 Ordered Result Diagrams: 04/19/17 10:27 04/19/17 10:27 - XRAY 1 XRAY Study: Chest Impression: Normal - CT/MRI 1 MRI Study: Head Impression: Abnormal MRI Results: atrophy, nothing acute - CONSULTS/PCP/HOSPITALIST Notification #1 *Consult/PCP/Hospitalist*: Dioni Time Discussed: 11:23 (and write orders) Consult Disposition: Will see in ED, Admit Departure - Departure Date of Disposition Decision: 04/19/17 Time of Disposition Decision: 11:19 DIAGNOSIS: Dehydration Disposition: ADMITTED INPATIENT 09 Certified Medical Emergency: Emergent Condition: Fair Referrals and Follow-Ups: Rahat Mcginnis MD [Primary Care Provider] - - Critical Care Note This patient required my direct & personal management of CC.: No This chart was documented by the indicated scribe, (Leyda Kellogg Scribe) and accurately reflects the services I performed and decisions made by me, Anibal Fajardo MD, as attested by the provider's signature.
[2017-04-19] MEDS ORDERED: NS 1,000 ML ONE (11:39)
--- NOTE | 2017-04-19 11:39 | EKG Report ---
Test Performed on : 04/19/2017 10:23:29 AM Test Reason : UNRESPONSIVE Blood Pressure : / mmHG Vent. Rate : 044 BPM Atrial Rate : 044 BPM P-R Int : 176 ms QRS Dur : 106 ms QT Int : 506 ms P-R-T Axes : 076 -17 097 degrees QTc Int : 432 ms Marked sinus bradycardia. Left ventricular hypertrophy with repolarization abnormality Anteroseptal infarct (cited on or before 18-MAR-2017) Abnormal ECG When compared with ECG of 18-MAR-2017 14:31, Vent. rate has decreased BY 23 BPM Criteria for Inferior infarct are no longer present Serial changes of Anteroseptal infarct present Unconfirmed Result
--- NOTE | 2017-04-19 12:38 | Diag Imaging Result Doc PS360 ---
EXAM: MRI BRAIN W/O CONTRAST HISTORY: ams TECHNIQUE: Axial, sagittal, and coronal images obtained in multiple sequences COMPARISON: None. FINDINGS: No recent infarct. There are prominent chronic microvascular ischemic changes in addition to mild atrophy. No mass or midline shift. No epidural or subdural fluid collection. A small amount of fluid is found in the mastoid sinuses. No other sinus opacification. IMPRESSION: Atrophy with chronic microvascular ischemic changes, but no recent infarct. Electronically signed by Moisés Ramos 04/19/2017 12:35 PM
--- NOTE | 2017-04-19 12:40 | Diag Imaging Result Doc PS360 ---
EXAM: MRA NECK W/O CONT HISTORY: ams TECHNIQUE: MIP images COMPARISON: None. FINDINGS: Motion degrades image quality: The proximal common carotid arteries are poorly seen. The mid and distal common carotid arteries are normal. No stenoses. No stenosis within the proximal right internal carotid artery. There is a stenosis within the left bulb between 50 and 70%. There is a dominant right vertebral artery. Minimal flow in the left vertebral artery. 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 Electronically signed by Moisés Ramos 04/19/2017 12:37 PM
--- NOTE | 2017-04-19 12:41 | Diag Imaging Result Doc PS360 ---
EXAM: MRA BRAIN W/O CONTRAST HISTORY: ams TECHNIQUE: MIP images of the [place] COMPARISON: None. FINDINGS: There is normal flow within each distal internal carotid artery. Normal filling of the anterior and middle cerebral arteries. Normal flow in the basilar artery. The left posterior cerebral artery is primarily filled from the basilar artery. There is a posterior communicating artery on the right which primarily accounts for filling of the right posterior cerebral artery. This is a normal variant. No aneurysm. IMPRESSION: No definite occlusion or stenosis within the [place]. Electronically signed by Moisés Ramos 04/19/2017 12:39 PM
[2017-04-19] MEDS ORDERED: D50W SYRINGE ONE (13:16)
[2017-04-19] MEDS ORDERED: D50W SYRINGE IV ONE (14:29)
[2017-04-19] MEDS ORDERED: ZOFRAN IV PRN (14:55)
[2017-04-19] MEDS ORDERED: D5 NS 1,000 ML IV ONE (14:55)
--- NOTE | 2017-04-19 15:44 | Diag Imaging Result Doc PS360 ---
EXAM: ABDOMEN/PELVIS W/O CONTRAST HISTORY: abd pain; vomiting; not eating TECHNIQUE: COMPARISON: 01/08/2016 FINDINGS: Motion degrades image quality: The gallbladder has been removed. The spleen is not enlarged. Normal noncontrasted pancreas and liver. Normal adrenal glands. Hypodense right renal lesion believed to be a 2.5cm cyst. No renal stones. No hydronephrosis. Prominent atherosclerosis. No aneurysmal dilatation to the aorta. There is stool throughout the colon. No inflammation about the cecum. No abscess. Small fat filled periumbilical hernia. No bowel loop within this. The urinary bladder is distended and appears normal. Uterus has been removed. No pelvic mass. Injury to the left hip since the prior exam. IMPRESSION: 1.Constipation 2.Cholecystectomy 3.Atherosclerosis 4.Right renal cyst 5.Hysterectomy 6.Small paraumbilical hernia 7.Injury to the left hip since the prior exam with apparent avulsion of the greater trochanter. There is scoliosis with prominent degenerative changes as well. Electronically signed by Moisés Ramos 04/19/2017 3:41 PM
[2017-04-19] MEDS: SODIUM CHLORIDE 0.9% INJ SCH (16:12)
[2017-04-19] MEDS: PROTONIX IV SCH (16:12)
[2017-04-19] MEDS: ROCEPHIN 1 GM/NS 1 GM/50 ML IVPB IV SCH (16:13)
--- NOTE | 2017-04-19 17:44 | HISTORY AND PHYSICAL ---
PRIMARY CARE PROVIDER: Dr. Rahat Mcginnis. CHIEF COMPLAINT: Unresponsive at [facility]. HISTORY OF PRESENT ILLNESS: Ms Pompa is a 81-year-old female with a history of non- Hodgkin lymphoma in remission, hypertension, hyperlipidemia, diabetes mellitus with her most recent admission being in March 2017 also with worsening mental status and weakness at that time. During that time she presented from home, upon discharge she was sent to [facility] for rehabilitation. According to her she was at her usual state of health, was verbal on the phone and according to her son who is also at the bedside she has had a decreased appetite, has not been eating anything for the last 3 days, no drinking anything for the last 3 days. Upon assessment this morning from the nursing staff at [facility] she was found to be unresponsive with snoring respirations and she was transferred here. Approximately 2 days ago she was also being treated for a UTI with Bactrim. Workup revealed that she had a heart rate in the 40s, her blood pressure was stable, her glucose was 68-71 and her urinalysis showed moderate leukocytes, 10-20 white blood cells and 1+ bacteria. Her drug screen was negative except for cannabinoids but she has been recently started on Marinol. Upon 1st assessment she was unresponsive with snoring respirations, eyes remain closed, did not follow any commands. Random blood glucose was obtained which was 68. She was given a half ampule of D50 and she was still drowsy but she woke up enough to follow commands and tell me her name. MRI and CT of the head showed atrophy but no acute stroke, MRA of the neck showed that she has proximal stenosis within the left internal carotid artery around 50-70%. She appeared to be equally in strength and followed commands but still has drowsy and still continued with snoring respirations. Will admit to ICU. Start on D5 normal saline drip to aid in keeping her glucoses more elevated. Will also consult general surgery for further evaluation of the carotid artery stenosis on the left. PAST MEDICAL HISTORY: 1. Non-Hodgkin lymphoma in remission. 2. Hypertension. 3. Hyperlipidemia. 4. Diabetes mellitus type 2. 5. Chronic pain syndrome. 6. Coronary artery disease. 7. GERD. 8. Paroxysmal atrial fibrillation but currently in normal sinus bradycardia rate 40s. 9. Frequent falls. SURGICAL HISTORY: Appendectomy, cholecystectomy, 3 laminectomies. SOCIAL HISTORY: She has been at [facility] but otherwise prior to this lived at home with her . Has frequent falls. She quit smoking date is unknown and no alcohol or drug use. REVIEW OF SYSTEMS: Unable to obtain. FAMILY HISTORY: Unable to obtain. ALLERGIES: Levaquin. HOME MEDICATIONS: Tylenol 650 mg p.o. q.6 hours p.r.n., Norvasc 5 mg p.o. daily, baclofen 10 mg p.o. twice daily, Klonopin 0.5 mg p.o. twice daily p.r.n., Marinol 2.5 mg p.o. nightly, Nexium 40 mg p.o. daily, furosemide 20 mg p.o. 48 hours, Neurontin 100 mg p.o. daily, Apresoline 50 mg p.o. 3 times a day, Imdur 30 mg p.o. daily, MiraLAX 17 g p.o. daily, ramipril 2.5 mg p.o. twice daily, simvastatin 20 mg p.o. daily, Bactrim 1 tab p.o. PHYSICAL EXAM: VITAL SIGNS: Temperature is 98.1 degrees, heart rates range anywhere from 43 to 69 but primarily in the 40s and is sinus rosa elena, respiratory rates anywhere from 10 to 22, blood pressures been 102-118 over 40s, O2 saturation 100% on 2 L nasal cannula. GENERAL: Ms. Pompa is a 81-year-old female who is heavily lethargic, was unresponsive until she received D50 and follows some simple commands and stated her name. HEENT: Atraumatic, normocephalic. Pupils are pinpoint and reactive. Unable to assess extraocular movements as she is heavily lethargic. Mucous membranes are dry. NECK: No JVD or carotid bruits noted. CARDIOVASCULAR: S1, S2. Bradycardic rate and rhythm. No rubs, gallops, murmurs. PULMONARY: Snoring respirations noted, difficult to hear breath sounds due to these respirations. No accessory muscle use noted. Currently on 2 L nasal cannula, saturations 100%. GI: Soft, nontender, nondistended. Positive bowel sounds x4 but hypoactive. EXTREMITIES: No edema noted, +1 dorsalis and radial pulses. SKIN: Warm, dry, intact. 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 LABORATORY DATA: White blood cells 9000, hemoglobin 10, hematocrit 33, platelet count 261,000. ABGs pH 7.39, pCO2 of 47, PO2 is 74, bicarb 27, base excess 3, saturation 93%, lactate 0.8 and this was on room air. Sodium 137, potassium 5.1, BUN 56, creatinine is 2.7 glucose 71, bilirubin 0.24, AST 12, ALT 7, troponin 0.127. Albumin 3.3. Urinalysis trace protein, moderate leukocytes, 10-20 white blood cells, greater than 10 epithelial cells, 1+ bacteria. Urine drug screen positive for cannabinoids but takes Marinol as outpatient. IMAGING: Chest x-ray. No acute disease. EKG. Sinus bradycardia, rate 44, QTc 432. No ST elevations. Head CT. No hemorrhage, atrophy with chronic microvascular ischemic changes. MRA of the brain. No definite occlusion or stenosis within the lime of Aaron. MRI of the brain. Atrophy with chronic microvascular ischemic changes but no recent infarct. MRA of the neck. Proximal stenosis within the left internal carotid artery between 50 and 70%. Pelvic abdominal CT without contrast. Constipation, cholecystectomy, atherosclerosis, right renal cyst, hysterectomy, small umbilical hernia, injury to the left hip since the prior exam with apparent avulsion of the greater trochanter. There is scoliosis with prominent degenerative changes as well. ASSESSMENT AND PLAN: 1. Metabolic encephalopathy. Could be secondary to hypoglycemia or acute kidney injury. Currently has snoring respirations but was arousable once she received D50 with a blood glucose level of 68. Will follow along in the ICU. 2. Acute kidney injury. Will give IV fluid hydration and recheck BUN and creatinine in the morning. 3. Recent urinary tract infection. She does have bacteria in the urine. Will continue with Rocephin. 4. Bradycardia possibly symptomatic. She ranges anywhere from 40s to 60s. Will hold any medications that can cause bradycardia at this time and follow along on telemetry. If needed can consult Cardiology. She does have a history of some bradycardia that I have noticed in the past. 5. History of paroxysmal atrial fibrillation. Currently she is sinus. Right now will just do SCDs. 6. Gastroesophageal reflux disease, will do Protonix twice a day. 7. Hypoglycemia. This could be causing some of this some altered mentation. She did receive a amp of D50. Will do IV fluid hydration with D5 normal saline at 100 an hour for now and check q.2 hour pattern blood glucoses. 8. Diabetes mellitus type 2. See previous number. 9. Hypertension currently stable. Will hold antihypertensives for now. 10. Hyperlipidemia. Hold home medications. 11. Frequent falls. Appears on her CT of the abdomen, pelvis it shows that she has had an injury to the left hip with avulsion of the greater trochanter. Dictated by JEFFREY Espinoza for Woo French MD cc: MD Woo Ortiz MD
[2017-04-19 21:05] LABS: URINE SOURCE CATH
[2017-04-19] MEDS ORDERED: NS 500 ML IV ONE ×2 (21:07→22:40)
[2017-04-19 21:10] LABS: BILIRUBIN URINE NEGATIVE (NEGATIVE); BLOOD URINE NEGATIVE (NEGATIVE); COLOR YELLOW; GLUCOSE URINE NEGATIVE (NEGATIVE); LEUKOCYTES URINE LARGE (NEGATIVE); NITRITE URINE NEGATIVE (NEGATIVE); PROTEIN URINE NEGATIVE (NEGATIVE); SP GRAVITY URINE 1.012; TURBIDITY URINE HAZY (CLEAR); UROBILINOGEN URINE NORMAL (NORMAL)
[2017-04-19 21:11] LABS: URINE MICRO REVIEW NEEDED? YES
[2017-04-19 21:16] LABS: UR EPITHELIAL CELLS <10 /HPF (<10); URINE BACTERIA 3+ /HPF; URINE CULTURE NEEDED? YES; URINE RBC <10 /HPF (<10); URINE WBC TNTC /HPF (<10)
[2017-04-19] MEDS: NS 1,000 ML IV SCH (22:32)
[2017-04-19] MEDS ORDERED: DOPAMINE 400 MG/D5W 400 MG/500 ML IV.SOLN IV SCH (23:03)
[2017-04-20] MEDS: DOPAMINE 400 MG/D5W 400 MG/500 ML IV.SOLN ONE ×2 (00:09→00:43)
[2017-04-20] MEDS ORDERED: NS 1,000 ML IV ONE (00:17)
[2017-04-20] MEDS ORDERED: LEVOPHED 8 MG in D5 1/2 NS 250 ML IV SCH (00:30)
[2017-04-20] MEDS: PROTONIX IV SCH ×2 (03:15→15:05)
[2017-04-20 04:45] LABS: MANUAL DIFF NEEDED? NO
[2017-04-20 04:48] LABS: BASO% 0.2 % (0.0-0.8); EOS# 0.14 X1000 (0.0-0.7); EOS% 1.7 % (0.0-10.0); HEMATOCRIT 34.9 % (37.0-47.0); HEMOGLOBIN 10.7 g/dL (12.0-16.0); LYMPH% 25.1 % (20.5-51.1); MCH 29.3 PG (27-31); MCHC 30.7 g/dL (33-37); MCV 95.6 FL (81-99); MONO# 0.64 X1000 (0.11-0.59); MONO% 7.7 % (1.7-9.3); MPV 11.7 FL (7.4-10.4); NEUT% 65.3 % (42.2-75.2); PLT 250 X1000 (130-400); RBC 3.65 XMIL (4.2-5.4)
[2017-04-20 04:57] LABS: INR 1.15; PROTIME 12.2 Seconds (9.2-11.7); PTT 28.9 Seconds (22.0-36.0)
[2017-04-20 05:16] LABS: ALBUMIN 2.9 g/dL (3.5-5.0); MAGNESIUM 2.2 mg/dL (1.5-2.7); POTASSIUM 4.5 mmol/L (3.5-5.1); TOTAL BILIRUBIN 0.17 mg/dL (0.20-1.00); TOTAL PROTEIN 5.9 g/dL (6.3-8.3)
--- NOTE | 2017-04-20 06:23 | EKG Report ---
Test Performed on : 04/20/2017 05:05:34 AM Test Reason : chest pain Blood Pressure : / mmHG Vent. Rate : 060 BPM Atrial Rate : 060 BPM P-R Int : 180 ms QRS Dur : 090 ms QT Int : 402 ms P-R-T Axes : 088 -17 108 degrees QTc Int : 402 ms Sinus rhythm. with premature atrial complexes. Anteroseptal infarct (cited on or before 18-MAR-2017) ST \T\ T wave abnormality, consider lateral ischemia Abnormal ECG When compared with ECG of 19-APR-2017 10:23, (Unconfirmed) premature atrial complexes. are now present Confirmed by Rigo WALTER, Eduardo Wetzel ([id number]) on 04/21/2017 2:55:25 PM
--- NOTE | 2017-04-20 06:49 | CONSULTATION ---
DATE OF CONSULTATION: 04/19/2017 REQUESTING PHYSICIAN: Hospitalist service. CONSULT CONCERNING: Possible carotid disease. HISTORY OF PRESENT ILLNESS: A 81-year-old, female initially presenting unresponsive from [facility]. She had been admitted back in March of this year for mental status changes and weakness. She was at a rehab facility where she was found to be unresponsive this morning and transferred over to [facility] for evaluation. The workup included a brain MRA and MRI and neck MRA, in addition to a head CT scan. Of note, he MRA of the neck did show proximal stenosis around 50% to 70% per the report of the left internal carotid. The patient was admitted to the ICU. She is currently somnolent but can be aroused. She does not have any lateralizing symptoms. She is unable to give further information. There is no family at the bedside to give further details of her current status. I reviewed her H P as dictated by the hospitalist service. PAST MEDICAL HISTORY: 1. Non-Hodgkin's lymphoma, in remission. 2. Hypertension. 3. Hyperlipidemia. 4. Diabetes mellitus type 2. 5. Chronic pain syndrome. 6. Coronary artery disease. 7. Gastroesophageal reflux disease. 8. Paroxysmal atrial fibrillation. 9. Frequent falls. PAST SURGICAL HISTORY: Includes appendectomy, cholecystectomy, previous laminectomy. SOCIAL HISTORY: Patient was recently at [facility]. REVIEW OF SYSTEMS: Unable to obtain. FAMILY HISTORY: Unable to obtain. ALLERGIES: Levaquin. HOME MEDICATIONS: Reviewed. PHYSICAL EXAMINATION: Vital Signs: Patient is currently afebrile. Her vital signs have been stable. General: Exam resting but arousable in no acute distress. HEENT: Normocephalic atraumatic. Pupils equal, round, reactive to light. Mucous membranes moist. Poor dentition. Neck: Supple. No carotid bruits. Trachea midline. Cardiovascular: Regular rate and rhythm. Lungs: Grossly clear. Abdomen: Soft, nontender, nondistended. Extremities: Moves all extremities. Skin: No signs of jaundice. Neurologic: Able to arouse patient. She does seem to follow commands. I cannot get her to speak at this time, but she has no lateralizing symptoms that I can appreciate. Facial muscles appear to be intact. LABORATORY: Reviewed. CT scan, MRA of then neck and brain and MRI of the brain reviewed and noted as above. ASSESSMENT AND PLAN: A 81-year-old, female with altered mental status and possible carotid disease. 1. Altered mental status. At this time, workup is currently underway. Exact etiology is unknown. She does have some moderate stenosis on her left side by neck MRA. 2. Possible left-sided carotid stenosis. At this time, this is based off the MRA. Will get carotid ultrasound to evaluate further. Regardless, the patient is not in a clinical state to do any surgical intervention, and at this time, I am not sure that it is the cause of her underlying issue. She would likely be best handled as an outpatient but will follow up with the carotid results. 3. Multiple medical comorbidities currently being managed by the hospitalist service. I appreciate the consult. We will continue to follow with you. Once the ultrasound is done, we will likely make further definitive statements. cc: Tucker Todd MD
[2017-04-20] MEDS: NS 1,000 ML IV SCH (07:48)
--- NOTE | 2017-04-20 07:49 | Carotid Study ---
DATE: 04/19/2017 PROCEDURE: Bilateral duplex and color flow imaging of the carotid arteries was performed using the [employer] Vivid E9 ultrasound system with a 9L-D transducer. REFERRING PHYSICIAN: Dr. Wheatley. INTERPRETING PHYSICIAN: Tucker Todd MD. TECH: Lilly. INDICATIONS: Altered mental status and abnormal neck MRA with proximal stenosis of the left internal carotid artery. OBSERVED DATA RIGHT LEFT Brachial Blood Pressure Carotid Pulse Bruits: Carotid/Sub DIAGRAM OF ULTRASOUND IMAGING R L RIGHT INT EXT INT EXT LEFT Ramy (cm/s) Ramy (cm/s) Subclavian 137/0 Subclavian 108/0 CCA Proximal 60/8 CCA Proximal 56/0 CCA Distal 43/5 CCA Distal 55/7 Bulb 49/7 Bulb 85/10 ICA Proximal 55/9 ICA Proximal 121/15 ICA Mid 47/8 ICA Mid 85/10 ICA Distal 48/5 ICA Distal 55/11 ECA 44/0 ECA 51/0 Vertebral 132/10 A Vertebral 50/0 A ICA/CCA Ratio 0.92 ICA/CCA Ratio 2.17 % Stenosis % Stenosis FINDINGS: There appears to be moderate stenosis of the left internal carotid artery measuring 40- 59%, likely closer to the 59% range. There is normal to mild stenosis on the right with 0-39%. Both vertebral arteries are antegrade flow. When compared to the MRA, the left side appears to be closer to the 59% range. INTERPRETATION: Moderate stenosis of the left internal carotid artery measuring 40-59%, most likely closer to the 59%. The right side has normal to mild stenosis. cc: MD Lilli Umana CRNP
[2017-04-20] MEDS ORDERED: D5 1/2 NS 1,000 ML IV SCH (08:30)
[2017-04-20] MEDS ORDERED: D5 NS 1,000 ML IV SCH ×2 (08:30→08:32)
[2017-04-20] MEDS ORDERED: D50W SYRINGE IV PRN (08:31)
[2017-04-20] MEDS: D5 1/2 NS 1,000 ML IV SCH ×2 (08:40→18:23)
[2017-04-20] MEDS ORDERED: BLISTEX MEDICATED BERRY LIP BALM TOP PRN (09:19)
--- NOTE | 2017-04-20 10:31 | Diag Imaging Result Doc PS360 ---
EXAM: US RENAL 2 (RETROPER) COMPLETE INDICATION: heron COMPARISON: None. FINDINGS: The renal cortical echotexture is mildly increased bilaterally, which is a nonspecific indicator of medical renal disease. There is a 3.4 cm simple cyst at the upper pole of the right kidney. There is a 0.9 cm cyst at the lower pole of the left kidney. No definite solid renal masses are identified. There is no hydronephrosis. The right kidney measures 10 cm and the left kidney measures 10.3 cm in the greatest longitudinal axes. Both renal cortices measure up to 1 cm in thickness. There is a Burrell catheter in the urinary bladder and the bladder is nondistended. Incidentally, there is a small amount of pleural fluid identified on the right. IMPRESSION: 1.Somewhat increased renal cortical echotexture, which is a nonspecific indicator of medical renal disease. 2.Bilateral simple appearing renal cysts. 3.Incidental right pleural effusion. Electronically signed by Ravin Yepez 04/20/2017 10:29 AM
[2017-04-20 11:23] LABS: HEMOGLOBIN A1C 6.2 % (4.8-6.0)
--- NOTE | 2017-04-20 11:34 | PROGRESS NOTE ---
DATE: 04/20/2017 SUBJECTIVE: The patient is definitely more awake today. She remembers where she is now. Does not complain of anything. OBJECTIVE: Vital Signs: Temperature 98.6 degrees, heart rate 58, respiratory rate 22, blood pressure 132/71, O2 saturation 99% on 2 L nasal cannula. General Examination: This is a 81-year- old, female lying in bed, in no acute distress. HEENT: Head is normocephalic and atraumatic. Anicteric sclerae and pale conjunctivae. Mucous membranes dry. Neck: Supple. No JVD noted. No carotid bruits. No lymphadenopathy. No thyromegaly. Cardiovascular Examination: S1 and S2 heard. No murmurs, gallops, or rubs. Regular rate and rhythm. Respiratory Examination: Some coarse breath sounds in both bases. Patient is not using any accessory muscles or having work of breathing. Abdomen: Soft, nontender to palpation. Bowel sounds present. No organomegaly. Extremities: No clubbing, cyanosis, or edema. Peripheral pulses present in both legs. Neurological Examination: The patient is awake and follows basic commands. Moves 4 extremities. Laboratory Data: White cell count 8.36, hemoglobin 10.7, hematocrit 34.9, platelets 250,000. BMP shows a creatinine of 1.6. That is getting better in comparing to 2.7 yesterday. ASSESSMENT AND PLAN: 1. Metabolic encephalopathy. It could be secondary to acute kidney injury versus hypoglycemia. In any case, the patient is much better. Because the glucose is on is still borderline low, we prefer to keep her on D5 half-normal saline and we will go from there. 2. Acute kidney injury. With intravenous fluids, patient is responding to this. Creatinine from 2.7 yesterday to 1.9 today so we will continue with the same management. 3. Recent urinary tract infection. Because this patient was started on Bactrim, that is why the urine culture returned negative but because she does have some bacteria in the urine, we will continue with ceftriaxone. 4. Bradycardia. By now, the heart rate is above 60. We will continue with the same management. 5. History of paroxysmal atrial fibrillation. By now, the patient is in sinus rhythm. 6. Gastroesophageal reflux disease. We will continue with Protonix. 7. Hypoglycemia. As mentioned above. 8. Diabetes mellitus type 2. We are going to check hemoglobin A1c and we will continue with sliding scale insulin. 9. Hypertension, stable. Not on any antihypertensive medicine by now. 10. Frequent falls. Patient had an injury in the left hip with avulsion of the greater trochanter. We prefer to have the orthopedic team regarding this problem before consult physical therapy. cc: Woo French MD
[2017-04-20] MEDS: SODIUM CHLORIDE 0.9% INJ SCH (15:05)
[2017-04-20] MEDS: ROCEPHIN 1 GM/NS 1 GM/50 ML IVPB IV SCH (15:06)
--- NOTE | 2017-04-20 18:53 | CONSULTATION ---
DATE OF CONSULTATION: 04/20/2017 FAMILY PHYSICIAN: Rahat Mcginnis MD REASON FOR CONSULTATION: Left great trochanter avulsion fracture. HISTORY OF PRESENT ILLNESS: Ms. Pompa is a 81-year-old, female with a history of non- Hodgkin lymphoma that is in remission, hypertension, hyperlipidemia, diabetes mellitus, altered mental status and frequent falls. Sometime in March, she was sent to [facility] rehab after worsening mental status and several falls at home. The family says that she has not been able to the eat or drink anything for the last 3 days. Apparently at the rehab, she became unresponsive and was transferred to the emergency room at [facility]. She was admitted with metabolic encephalopathy, acute kidney injury and a urinary tract infection. At some point, it was decided by the hospitalist to obtain an abdominal and pelvic CT. On the CT they did note an avulsion fracture of the left greater trochanter. This was not noted on her pelvic CT on 01/08/2016. After talking with the family and patient, she has been basically wheelchair bound other than limited hobbling to and from the bathroom for almost a year. The patient states she has had chronic hip pain for over a year, and the family says she has been to see Dr. Loera at some point for the hip pain. PAST MEDICAL HISTORY: 1. Non-Hodgkin lymphoma, in remission. 2. Hypertension. 3. Hyperlipidemia. 4. Diabetes mellitus type 2. 5. Chronic pain syndrome. 6. Coronary artery disease. 7. Gastroesophageal reflux disease. 8. Paroxysmal atrial fibrillation. 9. Frequent falls. SURGICAL HISTORY: 1. Appendectomy. 2. Cholecystectomy. 3. 3 laminectomies. SOCIAL HISTORY: [facility]. She is still . Family reports frequent falls. She has a history of smoking. ALLERGIES: Levaquin. FAMILY HISTORY: Noncontributory. HOME MEDICATIONS: Tylenol 650 mg p.o. daily. Norvasc 5 mg p.o. daily. Baclofen 10 mg p.o. twice daily. Klonopin 0.5 mg p.o. twice daily. Marinol 2.5 mg nightly. Nexium 40 mg p.o. daily. Lasix 20 mg p.o. every other day. Neurontin 100 mg p.o. daily. Apresoline 50 mg p.o. 3 times a day. Imdur 30 mg p.o. daily. MiraLAX 17 g p.o. daily. Verapamil 2.5 mg p.o. twice daily. Simvastatin 20 mg p.o. daily. Bactrim 1 tab p.o. PHYSICAL EXAMINATION: Vital Signs: At present temperature 99.2 degrees, pulse is 56, respiratory rate is 12, blood pressure is 156/53, oxygen saturation is 100% on 2 L nasal cannula. General: This patient is presently lying in the bed. No acute distress. She is awake and appropriate, she is very weak. HEENT: Atraumatic, normocephalic. Pupils are pinpoint and reactive. Neck: No JVD or carotid bruits are noted. Cardiovascular: She has a regular rate, but she is bradycardic. Pulmonary: Her respirations are even and unlabored. Left lower extremity is weak. She does have some notable drop foot. She has about a 3/5 for muscle strength to the left ankle/leg, she does have excellent pedal and tibial pulses. She has good capillary refill. The left leg is in a neutral position. She does not have any tenderness to palpation or with range of motion. No abrasions or lacerations. Neurologic: She is alert and oriented. So far, answering questions appropriately. She does seem to have a generalized weakness. ASSESSMENT AND PLAN: Left hip avulsion fracture of the greater trochanter. I do believe that this hip fracture is chronic. The patient states that she has not been walking for about a year now. She has been pretty much wheelchair bound other than some slight movements here and there. She does have a history of frequent falls. She is currently denying any pain to the hip and no signs of pain are noted with ROM or palpation. As of right now, we do not think any surgical intervention is required. So far the only imaging we have is a CT, I will order a 2 view hip x- ray. She is unable to stand at the present, so it will be non-weight bearing. We will plan to have physical therapy see her. Dictated by JEFFREY Galan for Luigi Maya MD cc: JEFFREY Galan MD [facility]
--- NOTE | 2017-04-20 19:39 | Diag Imaging Result Doc PS360 ---
EXAM: HIP W/PELVIS BILAT 2 VIEWS - 04/20/2017 HISTORY: fracture of left hip TECHNIQUE: Bilateral hips and pelvis three views COMPARISON: Left hip and pelvis of 09/25/2014 FINDINGS: There is fracture through the base of the greater trochanter of the proximal left femur. The lateral trochanteric fragment is superiorly displaced by approximately 3.7 cm and is located near the lateral margin of the femoral head. There is no other fracture identified. There is no hip dislocation identified. IMPRESSION: Fracture of greater trochanter of left femur with superiorly displaced lateral fragment. Electronically signed by Mandeep Rey 04/20/2017 7:36 PM
[2017-04-20] MEDS ORDERED: KLONOPIN PO PRN (20:38)
[2017-04-20] MEDS ORDERED: APRESOLINE IV PRN (20:38)
[2017-04-20] MEDS ORDERED: TYLENOL PO PRN (20:38)
[2017-04-20] MEDS ORDERED: MARINOL PO SCH (21:00)
[2017-04-20] MEDS: NEURONTIN PO SCH (21:15)
[2017-04-21] MEDS: PROTONIX IV SCH ×2 (03:17→15:23)
[2017-04-21] MEDS: D5 1/2 NS 1,000 ML IV SCH ×3 (05:00→21:43)
[2017-04-21] MEDS: NEURONTIN PO SCH (08:19)
[2017-04-21 08:39] LABS: MANUAL DIFF NEEDED? NO
[2017-04-21 08:53] LABS: BASO% 0.4 % (0.0-0.8); EOS# 0.15 X1000 (0.0-0.7); EOS% 2.2 % (0.0-10.0); HEMATOCRIT 32.6 % (37.0-47.0); LYMPH# 2.46 X1000 (1.2-3.4); LYMPH% 36.8 % (20.5-51.1); MCH 29.5 PG (27-31); MCHC 30.7 g/dL (33-37); MCV 96.2 FL (81-99); MONO# 0.67 X1000 (0.11-0.59); MPV 11.6 FL (7.4-10.4); NEUT% 50.6 % (42.2-75.2); PLT 234 X1000 (130-400); RBC 3.39 XMIL (4.2-5.4)
[2017-04-21 09:03] LABS: CALCIUM 8.3 mg/dL (8.8-10.2); POTASSIUM 4.2 mmol/L (3.5-5.1)
--- NOTE | 2017-04-21 10:07 | PROGRESS NOTE ---
DATE: 04/21/2017 SUBJECTIVE: Patient is definitely more awake today. Patient reports some burning on urination that was going on for at least a weeks, according to her. OBJECTIVE: Vital Signs: Temperature 98.4 degrees, heart rate 66, respiratory rate 17, blood pressure 142/58, O2 saturation 100% on room air. General Examination: This is a 81-year-old, female lying in bed, in no acute distress. HEENT: Head is normocephalic and atraumatic. Anicteric sclerae and pale conjunctivae. Mucous membranes moist. Neck: Supple. No JVD noted. No carotid bruits. No lymphadenopathy. No thyromegaly. Cardiovascular Examination: S1 and S2 heard. No murmurs, gallops, or rubs. Regular rate and rhythm. Respiratory Examination: Clear bilaterally to auscultation. No work of breathing or using accessory muscles. Abdomen: Soft, nontender to palpation. Bowel sounds present. No organomegaly. Extremities: No clubbing, cyanosis, or edema. Peripheral pulses present in both legs. Neurological Examination: Patient is awake, follows commands, moves 4 extremities. Laboratory Data: Hemoglobin 10. Renal function 1. ASSESSMENT AND PLAN: 1. Metabolic encephalopathy secondary to acute kidney injury which is hypoglycemia. Patient's mental status continues to improve. At this point, I think we are going to transfer this patient out to the intensive care unit today. 2. Acute kidney injury. After 2 days of aggressive intravenous fluid resuscitation, creatinine is back to normal. 3. Recent urinary tract infection. Patient was on Bactrim for this condition but she said that it was not working. Here, although the urine culture is negative, because clinically she was having symptoms of urinary tract infection, we will prefer to continue with ceftriaxone. 4. Bradycardia. Heart rate is above 60. 5. History of paroxysmal atrial fibrillation. By now, the patient continues to be in sinus rhythm. 6. Gastroesophageal reflux disease. We will continue with Protonix. 7. Hypoglycemia. Now this condition is better so we are going to stop D5 W and switch to normal saline at 75 mL per hour. 8. Diabetes mellitus type 2. Hemoglobin A1c returned at 6.2 which is an excellent diabetes control. We will continue with the same management and sliding scale insulin as well. 9. Hypertension. The blood pressure is between 120s-140s and she is not on any blood pressure medications. We will continue with the same management. 10. Frequent falls. Patient had an injury of the left hip. The patient has been evaluated by orthopedics which recommends no surgical approach and they recommended physical therapy only. We will see what they have to say. cc: Woo French MD
--- NOTE | 2017-04-21 10:16 | Diag Imaging Result Doc PS360 ---
CT THORAX W/O CONTRAST - 04/21/2017 INDICATION: pna TECHNIQUE: A CT dose reduction protocol was used. COMPARISON: 04/19/2017, 01/08/2016 FINDINGS: There are small bilateral pleural effusions. Heart size is top normal. There is a right chest port in good position. There are cholecystectomy clips stable from prior. Otherwise upper abdominal images are unremarkable. There is some linear atelectasis or scarring in the right middle lobe and the lingula. There is some mild bronchiectasis and chronic bronchitis in these lobes as well. There are chronic bilateral impacted surgical neck shoulder fractures stable from prior exams. IMPRESSION: Chronic bronchitis and mild bronchiectasis in the right middle lobe and lingula. Small pleural effusions. Electronically signed by Ruddy Viveros 04/21/2017 10:13 AM
[2017-04-21] MEDS: ROCEPHIN 1 GM/NS 1 GM/50 ML IVPB IV SCH (15:23)
[2017-04-21] MEDS: MARINOL PO SCH (21:42)
[2017-04-22] MEDS: PROTONIX IV SCH (04:49)
[2017-04-22] MEDS: SODIUM CHLORIDE 0.9% INJ SCH (04:49)
[2017-04-22] MEDS: MOVANTIK PO SCH (06:20)
[2017-04-22] MEDS: D5 1/2 NS 1,000 ML IV SCH (06:24)
--- NOTE | 2017-04-22 06:27 | CONSULTATION ---
DATE OF CONSULTATION: 04/21/2017 PRIMARY CARE PHYSICIAN: Rahat Mcginnis M.D. REFERRING PHYSICIAN: Zaheer Wallis M.D. PRIMARY HOSPITALIST: Woo French M.D. INDICATION FOR CONSULTATION: 1. Anorexia. 2. Early satiety. 3. Abdominal pain. HISTORY OF PRESENT ILLNESS: The patient is a very pleasant 81-year-old white female who has been seen by our practice as an inpatient in 2014, when she presented with nausea with vomiting, anorexia, and abdominal pain. She stated at that time in March 2015, she was unable to eat for 2-3 days. She underwent endoscopic evaluation that revealed a hiatal hernia with a Schatzki's ring, retained bile in the hernia sac, consistent with active bile reflux throughout the procedure. In addition, she had erosive gastritis, gastric stasis, and duodenitis. She was treated with Protonix and Carafate, with interval improvement. She subsequently underwent a gastric emptying study that was within the normal limits, but her gastric emptying time was within the limits of normal. At 50 minutes, she had 67% emptying. However, clinically, the patient continued to report signs of stasis. Unfortunately, due to recurrent falls, she was lost to followup. She has been a resident at [facility], and never returned for a clinical evaluation. The patient reports that she has struggled with constipation and unplanned weight loss due to early satiety and anorexia. She has had multiple falls, but has never been referred for subsequent evaluation for her GI concerns. This admission, the patient was found unresponsive after being unable to eat for 3 days. We are asked to participate in her care. It should be noted that the patient was also diagnosed with a left hip avulsion fracture that appears to be chronic. She also notes a chronic UTI, for which she is currently being treated. Clinically, she reports dysuria and low abdominal pain. PAST MEDICAL HISTORY: 1. Gastroesophageal reflux disease. 2. Schatzki's ring. 3. Hiatal hernia. 4. Gastroduodenitis. 5. Active bile reflux. 6. Diabetes mellitus 2. 7. Non-Hodgkin's lymphoma. 8. Multiple colon polyps. 9. 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 10. Opioid-induced constipation. 11. Chronic back pain. 12. Pneumonia. 13. Chronic kidney disease. 14. Atrial fibrillation. 15. Back pain. 16. Hypokalemia. 17. Bacteremia. 18. Pneumonia. 19. Frequent falls. PAST SURGICAL HISTORY: 1. Appendectomy. 2. Cholecystectomy. 3. Three laminectomies. SOCIAL HISTORY: The patient has been a resident at [facility] for the last few months. She was also discharged to rehab in 2014. She is . She has a history of smoking , but is not willing to state how much. She denies alcohol or recreational drug use. She is , with 3 children. FAMILY HISTORY: Remarkable in that multiple members of her family had cancer of various kinds. She does not recall the type of cancer that they had. MEDICATION ALLERGIES: Levaquin. HOME MEDICATIONS: 1. Neurontin. 2. Norvasc. 3. Baclofen. 4. Klonopin. 5. Marinol. 6. Nexium. 7. Lasix. 8. Apresoline. 9. Imdur. 10. MiraLAX. 11. Verapamil. 12. Simvastatin. 13. Bactrim. PHYSICAL EXAMINATION: Vital Signs: Her blood pressure is 141/59, pulse 56, respiration 18, temperature of 98.6 degrees. HEENT: Unremarkable. There is no evidence of icterus. Her conjunctiva however appear slightly pale. Oropharyngeal mucosa membranes are unremarkable. Pulmonary: Lungs are clear to auscultation, with normal expiratory effort. Cardiovascular: Reveals a regular rate and rhythm, with no gallops or rubs. Abdominal: Reveals normoactive bowel sounds. The abdomen is soft, with mild epigastric and periumbilical tenderness. There is no rebound or guarding. Extremities: Bilaterally are negative for cyanosis, clubbing, or edema. She does have a left foot drop. Neurologic: She is alert and oriented x3, with the appropriate mood, affect, and memory. OBJECTIVE DATA: Remarkable for a hemoglobin of 10.0, with hematocrit of 32.6, and a white count of 6.69. She has 234,000 platelets. Sodium is 140, potassium 4.2, chloride 107 , CO2 of 23, BUN 19, creatinine 1.0, with a glucose of 95. Calcium is 8.3. On 04/20/2017, her PT was 12.2, with an INR of 1.15, and a PTT of 28.9. IMPRESSION: 1. Anorexia. 2. Early satiety. 3. Epigastric fullness. 4. Constipation. RECOMMENDATION: 1. The patient's history is consistent with gastric stasis, most likely secondary to gastroparesis from her diabetes. Therefore, I recommend that she be scheduled for a gastric emptying study in the morning. 2. If the gastric emptying study is unrevealing, I will pursue endoscopic evaluation. 3. Her anemia is normocytic and normochromic. Please check iron studies, vitamin B12, and folate. 4. With regard to her constipation, I recommend Movantik once daily. 5. I would continue MiraLAX until such time that the Movantik is effective. 6. I agree with the Protonix 40 mg IV q.12 hours in light of her upper GI history. 7. Additional recommendations to follow based on her clinical course. cc: MD Rahat Faith MD Cesar Garcia-Rodriguez, MD MTDD
[2017-04-22 06:57] LABS: MANUAL DIFF NEEDED? NO
[2017-04-22 07:01] LABS: BASO% 0.2 % (0.0-0.8); EOS# 0.12 X1000 (0.0-0.7); EOS% 1.9 % (0.0-10.0); HEMATOCRIT 30.7 % (37.0-47.0); HEMOGLOBIN 9.3 g/dL (12.0-16.0); LYMPH# 2.55 X1000 (1.2-3.4); LYMPH% 39.8 % (20.5-51.1); MCH 28.9 PG (27-31); MCHC 30.3 g/dL (33-37); MCV 95.3 FL (81-99); MONO# 0.63 X1000 (0.11-0.59); MONO% 9.8 % (1.7-9.3); MPV 11.5 FL (7.4-10.4); NEUT% 48.3 % (42.2-75.2); PLT 247 X1000 (130-400); RBC 3.22 XMIL (4.2-5.4)
[2017-04-22 07:29] LABS: AGAP 7; BUN 13 mg/dL (8-22); CALCIUM 8.8 mg/dL (8.8-10.2); CHLORIDE 107 mmol/L (98-107); COSMO 277; POTASSIUM 4.3 mmol/L (3.5-5.1); SODIUM 139 mmol/L (136-145); TCO2 25 mmol/L (25-35)
[2017-04-22 07:32] LABS: IRON SATURATION 26 %; TIBC 156 ug/dL; TOTAL IRON 40 ug/dL (49-151); UNBOUND IRON 116 ug/dL (112-346)
[2017-04-22 07:46] LABS: FERRITIN 260 ng/mL (13-150)
[2017-04-22] MEDS: MIRALAX PO SCH (09:44)
[2017-04-22] MEDS: NEURONTIN PO SCH (09:44)
--- NOTE | 2017-04-22 15:48 | Diag Imaging Result Doc PS360 ---
EXAM: GASTRIC EMPTYING INDICATION: nausea with vomiting TECHNIQUE: 516 uCi of technetium 99 sulfur colloid was administered orally with an egg sandwich. COMPARISON: 04/16/2015 FINDINGS: There is normal activity in the afferent lumen initially. The time to one half emptying is 73 minutes. IMPRESSION: Unremarkable gastric emptying study. Electronically signed by Ravin Yepez 04/22/2017 3:46 PM
[2017-04-22] MEDS: FOLIC ACID 1 MG in NS 50 ML IV SCH (16:23)
[2017-04-22] MEDS: ROCEPHIN 1 GM/NS 1 GM/50 ML IVPB IV SCH (17:55)
--- NOTE | 2017-04-22 18:46 | PROGRESS NOTE ---
DATE: 04/22/2017 SUBJECTIVE: The patient has no complaints except for weakness. OBJECTIVE: Vital signs: Blood pressure 190/56, heart rate of 55, respiratory 16, temperature degrees to 97% on 2 L. Cardiovascular: Regular rate and rhythm. Pulmonary: Bilateral breath sounds. Clear to auscultation. GI: Soft, nontender, nondistended. Bowel sounds are positive. Extremities: No clubbing or cyanosis. Lymphatics: No peripheral edema. Neurological: Nonfocal. LABORATORY TODAY: White count 6, hemoglobin and hematocrit 9 and 30, platelets of 247,000. Chemistries were really unremarkable except folate was a little low at 7.2. PROBLEM LIST: 1. Encephalopathy that seems to be better. She is still very weak. 2. Acute kidney injury. That is resolved. 3. Urinary tract infection. She is on Rocephin. 4. Atrial fibrillation appears to be stable on current medications. 5. Hypoglycemia. I am going to stop per D5 and follow. 6. Type 2 diabetes. Seems to be also overall improved. DISPOSITION: I think she may need rehab, but her family I think is pushing to just go home, so we will get physical therapy to continue work with her. Gastroenterology has been consulted. They recommended gastroparetic study. That is negative, so she will likely need an EGD. I will continue to follow. I am going to make her nothing per oral after midnight. We will go from there. cc: Satish Peters MD
[2017-04-22] MEDS ORDERED: SODIUM CHLORIDE 0.9% 10 ML ONE (18:53)
--- NOTE | 2017-04-22 20:29 | PROGRESS NOTE ---
DATE: 04/22/2017 SUBJECTIVE: The patient states that she is feeling better today. Since Marinol was instituted this admission, she is eating better. She states that her only complaint today is weakness. She is currently refusing her endoscopy stating that she feels much better and has decided to not have the EGD performed. We were initially consulted for evaluation of anorexia, early satiety and abdominal pain. Her gastric emptying study is normal. RECOMMENDATION: 1. Recommend continuation of Carafate and Protonix. 2. Continue Marinol. 3. Prilosec 40 mg daily. She was previously on Protonix, but is currently on Prilosec. 4. Continue Marinol as this has made an interval improvement. 5. Continue Movantik for treatment of her chronic constipation. 6. We will sign off at this time as the patient states that she feels well and no longer wants any endoscopic evaluation at this time. Please feel free to contact us again if she changes her mind. cc: MD Satish Faith MD Michael C. Donham, MD
[2017-04-22] MEDS: MARINOL PO SCH (21:13)
[2017-04-23] MEDS: PRILOSEC PO SCH (06:00)
[2017-04-23] MEDS: MOVANTIK PO SCH (06:00)
[2017-04-23 06:57] LABS: MANUAL DIFF NEEDED? NO
[2017-04-23 07:08] LABS: BASO% 0.3 % (0.0-0.8); EOS# 0.19 X1000 (0.0-0.7); EOS% 2.8 % (0.0-10.0); HEMATOCRIT 32.6 % (37.0-47.0); HEMOGLOBIN 10.3 g/dL (12.0-16.0); LYMPH# 2.64 X1000 (1.2-3.4); LYMPH% 39.1 % (20.5-51.1); MCH 29.3 PG (27-31); MCHC 31.6 g/dL (33-37); MCV 92.9 FL (81-99); MONO# 0.64 X1000 (0.11-0.59); MONO% 9.5 % (1.7-9.3); MPV 11.8 FL (7.4-10.4); NEUT% 48.3 % (42.2-75.2); PLT 239 X1000 (130-400); RBC 3.51 XMIL (4.2-5.4)
[2017-04-23 07:20] LABS: MAGNESIUM 1.5 mg/dL (1.5-2.7)
[2017-04-23 07:29] LABS: AGAP 8; BUN 9 mg/dL (8-22); CALCIUM 9.1 mg/dL (8.8-10.2); CHLORIDE 105 mmol/L (98-107); COSMO 277; POTASSIUM 4.4 mmol/L (3.5-5.1); SODIUM 140 mmol/L (136-145); TCO2 27 mmol/L (25-35)
[2017-04-23] MEDS: MIRALAX PO SCH (09:47)
[2017-04-23] MEDS: NEURONTIN PO SCH (09:47)
[2017-04-23] MEDS: FOLIC ACID 1 MG in NS 50 ML IV SCH (12:42)
[2017-04-23] MEDS: ROCEPHIN 1 GM/NS 1 GM/50 ML IVPB IV SCH (16:44)
[2017-04-23] MEDS ORDERED: MAGNESIUM SULFATE 2 GM/S.W.I. 2 GM/50 ML IVPB IV ONE (20:00)
[2017-04-23] MEDS: MARINOL PO SCH (20:25)
[2017-04-24] MEDS: PRILOSEC PO SCH (06:24)
[2017-04-24] MEDS: MOVANTIK PO SCH (06:24)
[2017-04-24 06:45] LABS: MANUAL DIFF NEEDED? NO
[2017-04-24 06:51] LABS: BASO% 0.3 % (0.0-0.8); EOS# 0.11 X1000 (0.0-0.7); EOS% 1.4 % (0.0-10.0); HEMATOCRIT 32.9 % (37.0-47.0); HEMOGLOBIN 10.4 g/dL (12.0-16.0); LYMPH# 2.22 X1000 (1.2-3.4); LYMPH% 28.8 % (20.5-51.1); MCH 28.9 PG (27-31); MCHC 31.6 g/dL (33-37); MCV 91.4 FL (81-99); MONO# 0.83 X1000 (0.11-0.59); MONO% 10.8 % (1.7-9.3); MPV 11.4 FL (7.4-10.4); NEUT% 58.7 % (42.2-75.2); PLT 250 X1000 (130-400)
[2017-04-24 07:09] LABS: AGAP 11; BUN 9 mg/dL (8-22); CALCIUM 8.9 mg/dL (8.8-10.2); CHLORIDE 104 mmol/L (98-107); COSMO 279; SODIUM 141 mmol/L (136-145); TCO2 26 mmol/L (25-35)
[2017-04-24 07:44] VITALS: BP 197/57
[2017-04-24] MEDS: MIRALAX PO SCH (09:06)
[2017-04-24] MEDS: NEURONTIN PO SCH (09:06)
[2017-04-24] MEDS ORDERED: ALTACE PO SCH (15:00)
--- NOTE | 2017-04-24 15:31 | DISCHARGE SUMMARY ---
ADMISSION DATE: 04/19/2017 DISCHARGE DATE: 04/24/2017 DISCHARGE DIAGNOSES: 1. Encephalopathy, presumably metabolic. 2. History of non-Hodgkin's lymphoma. 3. Acute kidney injury. 4. Urinary tract infection. 5. Bradycardia with history of atrial fibrillation. 6. Gastroesophageal reflux disease. 7. Hypoglycemia with history of type 2 diabetes. HOSPITAL COURSE: Briefly, this is a pleasant female who came in from rehab with confusion, poor eating and drinking, unresponsive. She had been recently treated with urinary tract infection with Bactrim. She was given D 50. She had an MRI and MRA, which were not too remarkable, except she did have a left internal carotid artery stenosis of about 50% to 70%. The patient was admitted for treatment. She slowly clinically improved. Dr. Todd was consulted for carotid disease, and they recommended getting a carotid ultrasound, and that showed moderate stenosis 40% to 59%. I just recommended to follow that. Renal ultrasound was pursued because of acute kidney injury, but that was fairly unremarkable. She may have had some early signs of medical renal disease. Her mental status improved. Sugars continued to improve. She had been on D 5 and was transitioned off. She had a left greater trochanter avulsion fracture and it was felt to be chronic, but the patient was wheelchair bound. So, this was not felt to be an acute issue and it was managed medically. Chest CT was ordered which showed chronic bronchitis and bronchiectasis. GI was consulted for poor appetite. Gastric emptying study was pursued which was unremarkable. The patient's diet was advanced. She improved well. She had been on Marinol and she is still taking it. Dr. Phillip recommended Carafate and Protonix and seemed to be doing okay. She had chronic constipation issues for which she had been placed on Movantik. By the twenty-second, the patient had clinically improved. She was felt stable improving for discharge. She progress with PT. She did not want to go back to rehabilitation, so she was monitored, discharge with home health, and she was found to be folate deficient. She was somewhat hypertensive on admission or even the day of discharge, however she had not been getting her antihypertensives. So, we will go ahead and resume those. DISCHARGE MEDICATIONS: 1. Tylenol p.r.n. 2. Norvasc 5 daily. 3. Baclofen p.r.n. 4. Omnicef 300 p.o. b.i.d. for another 5 days. 5. Klonopin p.r.n. 6. Marinol 2.5 at bedtime. 7. Nexium 40 daily. 8. Folic acid 1 daily. 9. Lasix 20 daily. 10. Neurontin 100 daily. 11. Hydralazine 50 t.i.d. 12. Imdur 30 daily. 13. Prilosec 40 daily. 14. We are just going to resume her Protonix. 15. MiraLAX 17 daily. 16. Ramipril 2.5 daily. 17. Simvastatin 20 daily. DISCHARGE CONDITION: Stable. TIME SPENT: 35 minute discharge. She will be set up with home health and home physical therapy. cc: MD Rahat Blancas MD
--- NOTE | 2017-04-24 17:03 | PROGRESS NOTE ---
DATE: 04/23/2017 OBJECTIVE: Vitals: Blood pressure 154/60, heart rate 56, respiratory rate 18, temperature 98.6 degrees, 96% on room air. General: Patient has no focal complaints. Cardiovascular: Regular rate and rhythm. Pulmonary: Diminished breath sounds at the bases. GI: Soft, nontender, nondistended. Bowel sounds are positive. LABORATORY DATA: Hemoglobin and hematocrit 10 and 32. CMP was okay. PROBLEM LIST: 1. Encephalopathy overall has resolved. 2. Acute kidney injury resolved. 3. E. coli urinary tract infection. She is on Rocephin, appears to be stable. 4. Atrial fibrillation, appears to be stable. 5. Hypoglycemia type 2 diabetes is resolved off of D5. DISPOSITION: Likely home tomorrow. Patient does not want to pursue inpatient rehab although she came from there and would like to go home with family, home health and home physical therapy. cc: Satish Peters MD
== END 2017-04-24 15:51 | disposition home health service (06) ==
LOC: SUPCPDRO → ED 10:14 → SUATTDRO 14:39 → ICU 14:39 → 3N 04-21 12:39
PROVIDERS: ATTEND Internal Medicine

== ENCOUNTER 2019-06-04 12:07 | Inpatient (IN) ==
[2019-06-04] MEDS ORDERED: ASPIRIN PR ONE (12:14)
[2019-06-04] MEDS ORDERED: ASPIRIN PO ONE (12:14)
--- NOTE | 2019-06-04 12:40 | EKG Report ---
Test Performed on : 06/04/2019 12:30:04 PM Test Reason : SOB Blood Pressure : / mmHG Vent. Rate : 073 BPM Atrial Rate : 085 BPM P-R Int : 136 ms QRS Dur : 118 ms QT Int : 474 ms P-R-T Axes : 041 -18 144 degrees QTc Int : 522 ms Sinus rhythm. with premature atrial complexes. Ventricular pre-excitation, WPW pattern type B Abnormal ECG When compared with ECG of 20-APR-2017 05:05, Rtubl-Fkojycben-Whuzy is now present Unconfirmed Result
[2019-06-04 12:50] LABS: BASO# 0.01 X1000 (0.0-0.2); BASO% 0.1 % (0.0-0.8); EOS# 0.17 X1000 (0.0-0.7); EOS% 1.6 % (0.0-10.0); HEMATOCRIT 37.7 % (37.0-47.0); HEMOGLOBIN 11.5 g/dL (12.0-16.0); IMM GRAN# 0.02 X1000 (0.0-0.04); IMM GRAN% 0.2 % (0.0-0.5); LYMPH# 4.02 X1000 (1.2-3.4); LYMPH% 38.3 % (20.5-51.1); MCH 27.3 PG (27-31); MCHC 30.5 g/dL (33-37); MCV 89.3 FL (81-99); MONO# 0.81 X1000 (0.11-0.59); MONO% 7.7 % (1.7-9.3); MPV 12.4 FL (7.4-10.4); NEUT# 5.47 X1000 (1.4-6.5); NEUT% 52.1 % (42.2-75.2); PLT 176 X1000 (130-400); RBC 4.22 XMIL (4.2-5.4); RDW 16.3 % (11.5-14.5)
[2019-06-04 13:07] LABS: INR 1.07; PROTIME 14.4 Seconds (11.0-16.0)
[2019-06-04 13:13] LABS: ALBUMIN 3.8 g/dL (3.5-5.0); CALCIUM 8.5 mg/dL (8.8-10.2); POTASSIUM 3.9 mmol/L (3.5-5.1); TOTAL BILIRUBIN 0.5 mg/dL (0.20-1.00); TOTAL PROTEIN 6.6 g/dL (6.3-8.3)
--- NOTE | 2019-06-04 13:38 | Diag Imaging Result Doc PS360 ---
EXAM: CHEST-PORTABLE HISTORY: chest pain TECHNIQUE: Portable chest COMPARISON: 09/29/2018 FINDINGS: The lungs are well expanded. The heart is not enlarged. The vessels are not distended. There are no infiltrates. No effusion identified. Right jugular portacatheter is unchanged. IMPRESSION: Stable chest. Electronically signed by Moisés Ramos 06/04/2019 1:36 PM
[2019-06-04 13:55] LABS: BE 2.3 mmoll (-3.0-3.0); BLOOD TYPE ARTERIAL; HCO3-(ACT) 26.6 mmoll (20.0-26.0); METHB 0.6 % (0.0-1.5); O2(CT) 14.9 mL/dL (15.0-23.0); O2HB 93.4 % (95.0-99.0); PCO2(98.6) 46 mmHg (35-45); PO2(98.6) 70 mmHg (60-100); SAMPLE BLOOD; SAO2 95.5 % (95.0-100.0); THB 11.3 g/dL (11.5-17.4); pH(98.6) 7.39 (7.35-7.45)
[2019-06-04 14:02] LABS: ALLEN TEST YES; MODALITY ROOM AIR
[2019-06-04] MEDS ORDERED: DUONEB (A & A) INH PRN (15:23)
[2019-06-04] MEDS ORDERED: DUONEB (A & A) INH SCH (15:30)
--- NOTE | 2019-06-04 16:15 | HISTORY AND PHYSICAL ---
PRIMARY CARE PROVIDER: Dr. Rahat Mcginnis. CHIEF COMPLAINT: Chest pain with bilateral shoulder pain. HISTORY OF PRESENT ILLNESS: Ms. Pompa is an 84-year-old, female with a past medical history of non-Hodgkin's lymphoma in remission, hypertension, hyperlipidemia, diabetes mellitus, chronic pain syndrome, coronary artery disease, GERD, paroxysmal atrial fibrillation, frequent falls, who reported chest pain that happened this a.m. with bilateral shoulder pain. She states that she got scared and had someone bring her to the ED. She did feel like she was wheezing and she took one of her 's breathing treatments and had improvement. Workup in the ED, chest x- ray showed a stable chest. There were no infiltrates, no effusions. The lungs were well expanded. Her EKG did show sinus rhythm with PACs at 73 beats per minute. She was initially hypertensive with blood pressure at 206/102. On a call to recheck, she was in the 160s/70s. Her initial troponin was negative and she is currently chest pain free. She has not had any shortness of breath, fever, chills, or cough. No nausea, vomiting, diarrhea. No headache. No syncope. She does not report any palpitations. We were called for admission for COPD exacerbation. However, we will pursue a cardiac workup as she has an elevated proBNP of 10,702. The patient denied any initial heart history but she does take Lasix at home. She does have some generalized swelling to her lower extremities. We will go ahead and give her one dose of IV Lasix and continue her home dose, and recheck her proBNP in the a.m. Admit her to the medical floor for further treatment and evaluation. PAST MEDICAL HISTORY: 1. Non-Hodgkin's lymphoma, in remission. 2. Hypertension. 3. Hyperlipidemia. 4. Diabetes mellitus type 2. 5. Chronic pain syndrome. 6. Coronary artery disease. 7. Gastroesophageal reflux disease. 8. Paroxysmal atrial fibrillation, currently sinus rhythm with PACs. 9. Frequent falls. SURGICAL HISTORY: 1. Appendectomy. 2. Cholecystectomy. 3. Three laminectomies. SOCIAL HISTORY: She lives with her at home. She is an ex-smoker who quit years ago. No alcohol or illicit drug use. REVIEW OF SYSTEMS: Twelve-point review of systems completely negative except for those mentioned in the HPI. ALLERGIES: 1. Levaquin, causes itching. 2. Dopamine, causes swelling. HOME MEDICATIONS: 1. Lipitor 40 mg p.o. at bedtime. 2. Lasix 20 mg p.o. daily. 3. Neurontin 100 mg p.o. at bedtime. 4. Antivert 25 mg p.o. as directed. 5. Prilosec 20 mg p.o. daily. 6. Altace 5 mg p.o. daily. 7. Senna-S 1 each p.o. b.i.d. PHYSICAL EXAMINATION: VITAL SIGNS: Temperature is 98 degrees, heart rate 80, respirations 20, initial blood pressure 206/102 and now 160s/70s, O2 is 95% on room air. However, the patient has since put on nasal cannula. HEENT: Atraumatic, normocephalic. PERRL. NECK: Supple. Trachea midline. CV: S1-S2 appreciated. Irregularly irregular rhythm. EKG showed sinus rhythm with PACs. No murmurs, gallops, or rubs noted. RESPIRATORY: Lung sounds relatively clear throughout all lung puri. GI: Soft, nontender, nondistended. Positive bowel sounds in 4 quadrants. EXTREMITIES: Lower extremities, generalized edema. Bilateral pedal pulses were palpable. NEUROLOGIC: The patient is awake, alert, oriented. No focal deficits noted. DIAGNOSTIC DATA: EKG, sinus rhythm with PACs at 73 beats per minute. Chest x- ray showed a stable chest. LABORATORY DATA: White count 10, hemoglobin and hematocrit 11 and 37, platelet count is 176,000. Chemistry: Sodium 144, potassium 3.9, BUN 14, creatinine 1.0, blood glucose is 132. Troponin was less than 0.010. ProBNP was 10,702. TSH was 1.16. ASSESSMENT AND PLAN: 1. Chest pain rule out with known CAD. We will continue to trend her cardiac enzymes. First set was negative. We will check an echocardiogram in the morning. Continue with aspirin. Recheck an electrocardiogram in the morning. 2. Elevated proBNP. There is question of some heart failure. Patient does take Lasix at home. However, she denies heart failure. We will check an echocardiogram in the morning. Continue to trend her. We will recheck her proBNP in the morning. Give her a dose of intravenous Lasix now and continue her home dose in the morning, as well as recheck a chest x-ray. 3. Initial accelerated hypertension. Patient's blood pressure has now come down to 160s/70s. We will continue with home medications. 4. Diabetes mellitus type 2. We will place her on sliding scale with fingerstick blood sugars. 5. Hyperlipidemia. 6. Chronic pain syndrome. 7. Coronary artery disease. 8. Gastroesophageal reflux disease. 9. Paroxysmal atrial fibrillation, 12 lead shows SR with PAC's. 10. Frequent falls. 11. Further recommendations to follow physician evaluation, laboratory and diagnostic data. Dictated by JEFFREY Woodard for Woo French MD Addendum: Patient seen and examined by myself. Agree with JEFFREY note. It reflects my assessment and plan. Patient is being admitted to hospital for chest pain. She has history of CAD. Will trend troponins and also an echocardiogram. If any abnormality is found Cardiology will be consulted. Will also optimize hypertension meds as well. cc: MD Rahat Jones MD MTDPhylicia
[2019-06-04] MEDS ORDERED: ANTIVERT PO PRN (16:37)
[2019-06-04] MEDS ORDERED: TYLENOL PO PRN (16:37)
[2019-06-04] MEDS ORDERED: LASIX IV ONE (16:37)
[2019-06-04] MEDS ORDERED: ZOFRAN IV PRN ×2 (16:37)
--- NOTE | 2019-06-04 16:45 | Diag Imaging Result Doc PS360 ---
EXAM: CT THORAX W/O CONTRAST HISTORY: pna, pulmonary edema TECHNIQUE: CT chest without contrast COMPARISON: 04/21/2017 CT and chest x-ray taken earlier FINDINGS: Trace pleural fluid. Heart is mildly enlarged. Prominent atherosclerosis. No significant pulmonary edema. Small calcified mediastinal nodes with scattered granuloma. Right portacatheter. No pneumothorax. Right apical pleural thickening. No infiltrates. IMPRESSION: Trace pleural fluid with a mildly prominent heart This exam was performed using automated exposure control, adjustment of mA or kV according to patient size, and/or use of iterative reconstruction technique. Electronically signed by Moisés Ramos 06/04/2019 4:43 PM
--- NOTE | 2019-06-04 18:00 | EKG Report ---
Test Performed on : 06/04/2019 5:35:32 PM Test Reason : bradycardia Blood Pressure : / mmHG Vent. Rate : 059 BPM Atrial Rate : 059 BPM P-R Int : 158 ms QRS Dur : 102 ms QT Int : 484 ms P-R-T Axes : 080 -25 155 degrees QTc Int : 479 ms Sinus bradycardia. with frequent premature ventricular complexes. Left ventricular hypertrophy with repolarization abnormality Inferior infarct , age undetermined Anteroseptal infarct , age undetermined Abnormal ECG When compared with ECG of 04-JUN-2019 12:30, (Unconfirmed) premature ventricular complexes. are now present premature atrial complexes. are no longer present [id number] is no longer present Confirmed by Rahat Howe MD ([id number]) on 06/11/2019 11:30:15 AM
[2019-06-04] MEDS ORDERED: PNEUMOVAX 23 IM ONE (19:15)
[2019-06-04] MEDS ORDERED: APRESOLINE IV PRN (20:17)
[2019-06-04] MEDS ORDERED: VASOTEC IV SCH (20:30)
[2019-06-04] MEDS: NORVASC PO SCH (20:52)
[2019-06-04] MEDS: LIPITOR PO SCH (20:52)
[2019-06-04] MEDS: PERICOLACE PO SCH (20:52)
[2019-06-04] MEDS: NEURONTIN PO SCH (20:52)
[2019-06-05 04:44] LABS: BILIRUBIN URINE NEGATIVE (NEGATIVE); BLOOD URINE NEGATIVE (NEGATIVE); CLARITY CLEAR (CLEAR); COLOR YELLOW; GLUCOSE URINE NEGATIVE (NEGATIVE); KETONE URINE NEGATIVE (NEGATIVE); LEUKOCYTES URINE NEGATIVE (NEGATIVE); NITRITE URINE NEGATIVE (NEGATIVE); PH URINE 6.5; PROTEIN URINE TRACE mg/dL (NEGATIVE); SP GRAVITY URINE 1.005; UROBILINOGEN URINE NORMAL
[2019-06-05 04:47] LABS: URINE BACTERIA 3+ /HFP; URINE CAST NONE SEEN /LPF; URINE CRYSTAL NONE SEEN /HPF; URINE EPITHELIAL CELLS <10 /HPF (<10); URINE YEAST NONE SEEN /HPF
[2019-06-05 04:48] LABS: URINE RBC <10 /HPF (<10); URINE SOURCE CLEAN CATCH; URINE WBC <10 /HPF (<10)
[2019-06-05 06:35] LABS: BASO# 0.01 X1000 (0.0-0.2); BASO% 0.1 % (0.0-0.8); EOS% 0.8 % (0.0-10.0); HEMOGLOBIN 10.8 g/dL (12.0-16.0); IMM GRAN# 0.04 X1000 (0.0-0.04); IMM GRAN% 0.3 % (0.0-0.5); LYMPH# 2.21 X1000 (1.2-3.4); LYMPH% 17.7 % (20.5-51.1); MCH 26.7 PG (27-31); MCV 88.9 FL (81-99); MONO# 0.84 X1000 (0.11-0.59); MONO% 6.7 % (1.7-9.3); MPV 13.5 FL (7.4-10.4); NEUT# 9.29 X1000 (1.4-6.5); NEUT% 74.4 % (42.2-75.2); PLT 172 X1000 (130-400); RBC 4.05 XMIL (4.2-5.4); RDW 16.4 % (11.5-14.5); WBC 12.49 X1000 (4.8-10.8)
--- NOTE | 2019-06-05 06:38 | EKG Report ---
Test Performed on : 06/05/2019 06:22:20 AM Test Reason : FOLLOW UP Blood Pressure : / mmHG Vent. Rate : 070 BPM Atrial Rate : 070 BPM P-R Int : 152 ms QRS Dur : 100 ms QT Int : 508 ms P-R-T Axes : 102 -17 146 degrees QTc Int : 548 ms Sinus rhythm. with premature supraventricular complexes. Left ventricular hypertrophy with repolarization abnormality Anteroseptal infarct (cited on or before 04-JUN-2019) Prolonged QT Abnormal ECG When compared with ECG of 04-JUN-2019 17:35, (Unconfirmed) premature ventricular complexes. are no longer present premature supraventricular complexes. are now present QT has lengthened Confirmed by Rahat Howe MD ([id number]) on 06/11/2019 11:29:59 AM
[2019-06-05] MEDS: PRILOSEC PO SCH (06:46)
[2019-06-05 06:52] LABS: AGAP 13; CHLORIDE 104 mmol/L (98-107); POTASSIUM 4.3 mmol/L (3.5-5.1); SODIUM 145 mmol/L (136-145); TCO2 28 mmol/L (25-35)
[2019-06-05 06:53] LABS: ALBUMIN 3.4 g/dL (3.5-5.0); ALKALINE PHOSPHATASE 119 U/L (32-104); BUN 23 mg/dL (8-22); CALCIUM 8.6 mg/dL (8.8-10.2); CHOLESTEROL 128 mg/dL (0-200); COSMO 293; CREATININE 1.1 mg/dL (0.5-0.9); ESTIMATED GFR 48; GLUCOSE 116 mg/dL (70-104); GOT 13 U/L (10-30); GPT 7 U/L (10-36); HDL 36 mg/dL (45-65); LDL 78 mg/dL; MAGNESIUM 1.3 mg/dL (1.5-2.7); TOTAL PROTEIN 6.2 g/dL (6.3-8.3); TRIGLYCERIDES 72 mg/dL (35-135); VLDL 14 mg/dL
--- NOTE | 2019-06-05 08:20 | Diag Imaging Result Doc PS360 ---
EXAM: CHEST-PORTABLE HISTORY: follow up TECHNIQUE: Single view of the chest was performed portably. COMPARISON: 06/04/2019 FINDINGS: The cardiomediastinal silhouette is within normal limits. There is atherosclerotic calcification aortic arch. There is a right central venous catheter, tip SVC. The pulmonary vasculature is not congested. No infiltrate, effusion, or pneumothorax is appreciated. Stable granuloma right midlung zone. IMPRESSION: No acute cardiopulmonary abnormality is identified. Electronically signed by Angie Yang 06/05/2019 8:17 AM
[2019-06-05] MEDS: ASPIRIN PO SCH (08:34)
[2019-06-05] MEDS: NORVASC PO SCH ×2 (08:35→20:57)
[2019-06-05] MEDS: LASIX PO SCH (08:35)
[2019-06-05] MEDS: PERICOLACE PO SCH ×2 (08:35→20:58)
[2019-06-05] MEDS: ALTACE PO SCH (08:35)
--- NOTE | 2019-06-05 14:49 | ECHO REPORT ---
ORDER DATE: 06/04/2019 ECHOCARDIOGRAPHIC MEASUREMENTS: 1. Interventricular septum 1.7. 2. Left ventricular posterior wall 1.2. 3. Diastolic diameter 4.1. 4. Left atrium 3.2. 5. Aorta 3.3. SUMMARY: 1. Pulmonic valve was normal. There is trace pulmonary regurgitation. 2. Aortic valve leaflets are trileaflet. 3. Mitral valve was normal. There is moderate mitral annular calcification. 4. Tricuspid valve was normal. Catheter tip noted in the right atrium. There is mild tricuspid regurgitation. Peak velocity across the tricuspid valve was 3.6 m/sec. 5. Pulmonary artery systolic pressure of 60 mmHg. 6. There is mild to moderate eccentric mitral regurgitation. 7. There is no aortic stenosis. 8. There is [id number] aortic regurgitation. 9. Normal left ventricular cavity size. There is asymmetric left ventricular hypertrophy associated with diastolic dysfunction. Estimated ejection fraction of 60%. Left bundle branch block noted. 10. There is no pericardial effusion. cc: MD Woo Ernst MD
--- NOTE | 2019-06-05 19:27 | PROGRESS NOTE ---
DATE: 06/05/2019 SUBJECTIVE: Patient is still coughing. Notes that she is feeling a little bit better. Still having palpitations occasionally. PHYSICAL EXAMINATION: Vital Signs: Temperature 98 degrees, pulse 65, respiratory rate 18, BP 155/76. General: Patient is awake, alert. She is in no distress. Cardiovascular: Regular rate. Chest: Clear. Abdomen: Soft. Extremities: Moves all extremities. ASSESSMENT: 1. Diabetes. 2. Hyperlipidemia. 3. Known coronary artery disease. 4. Paroxysmal atrial fibrillation. PLAN: Will continue patient in the hospital and will follow. Hopefully, her symptoms will improve and she can be discharged home over the next day or two. cc: Manny Harvey MD
[2019-06-05] MEDS: NEURONTIN PO SCH (20:57)
[2019-06-05] MEDS: LIPITOR PO SCH (20:57)
[2019-06-06 06:00] LABS: HEMATOCRIT 36.4 % (37.0-47.0); HEMOGLOBIN 11.1 g/dL (12.0-16.0); MCH 27.1 PG (27-31); MCHC 30.5 g/dL (33-37); MCV 88.8 FL (81-99); MPV 13.1 FL (7.4-10.4); RBC 4.1 XMIL (4.2-5.4); RDW 16.6 % (11.5-14.5); WBC 8.48 X1000 (4.8-10.8)
[2019-06-06] MEDS: PRILOSEC PO SCH (06:03)
[2019-06-06 06:17] LABS: CALCIUM 8.4 mg/dL (8.8-10.2); CREATININE 1.4 mg/dL (0.5-0.9); POTASSIUM 3.9 mmol/L (3.5-5.1)
[2019-06-06 07:24] VITALS: BP 147/37
[2019-06-06] MEDS: LASIX PO SCH (10:32)
[2019-06-06] MEDS: NORVASC PO SCH (10:32)
[2019-06-06] MEDS: ALTACE PO SCH (10:32)
[2019-06-06] MEDS: ASPIRIN PO SCH (10:33)
[2019-06-06] MEDS: PERICOLACE PO SCH (10:33)
--- NOTE | 2019-06-06 16:59 | DISCHARGE SUMMARY ---
ADMISSION DATE: 06/04/2019 DISCHARGE DATE: 06/06/2019 CONSULTATIONS: None. PERTINENT PROCEDURES: Echocardiogram showed an EF of 60% with a left bundle branch block. Chest CT: Trace pleural fluid with mildly prominent heart. Followup chest x-ray showed no acute cardiopulmonary abnormality identified. DISCHARGE DIAGNOSES: 1. Chest pain rule out with known coronary artery disease. Cardiac enzymes have been negative. Echocardiogram has been done. The patient has since remained chest pain free after her blood pressure was more under control. 2. Initial hypertensive urgency. The patient was added Norvasc to her regimen with much improvement. 3. Elevated proBNP. There was some question of heart failure. Patient does take Lasix at home. However, she denies diagnosis of heart failure. Echocardiogram was obtained with an EF of 60%, and we switched her back to her home dosage. Her followup chest x-ray does not show any acute cardiopulmonary abnormalities. 4. Diabetes mellitus type 2. Will continue with home regimen. Continue diabetic diet. 5. Hyperlipidemia. 6. Chronic pain syndrome. 7. Coronary artery disease. 8. Gastroesophageal reflux disease. 9. Paroxysmal atrial fibrillation. The patient has been in sinus rhythm. 10. Frequent falls. HOSPITAL COURSE: Briefly, Ms. Pompa is an 84-year-old female with past medical history of non-Hodgkin's lymphoma in remission, hypertension, hyperlipidemia, diabetes mellitus, chronic pain syndrome, coronary artery disease, GERD, paroxysmal atrial fibrillation, frequent falls at home, who came to the ED complaining of chest pain that went to her bilateral shoulders. She states she got scared and had someone bring her to the ED. She reported she felt like she was wheezing at home and took her 's breathing treatment and had improvement. Workup in the ED with a chest x-ray showed stable chest. There were no infiltrates, effusions. Her lung field were well expanded. Her EKG showed sinus rhythm with PACs. She was initially hypertensive with blood pressures of 206/102. She had 3 sets of negative troponins. She did have an elevated proBNP but adamantly denies any history of heart failure, but she does take p.o. Lasix at home. She was given 1 time dose of IV Lasix and was resumed on her home p.o. dose. She has remained chest pain free throughout her admission, and we will discharge her home today to follow up with her primary care provider, Dr. Mcginnis. VITAL SIGNS: At time of her discharge: Temperature is 97.9 degrees, heart rate 83, respirations 14, blood pressure 147/37. O2 is 95% on room air. DISCHARGED DIET: Diabetic. DISCHARGE MEDICATIONS: 1. Neurontin 100 mg p.o. at bedtime. 2. Altace 5 mg p.o. daily. 3. Antivert 25 mg p.o. as directed. 4. Lasix 20 mg p.o. daily. 5. Prilosec 20 mg p.o. daily. 6. Senokot 1 each p.o. b.i.d. 7. Lipitor 40 mg p.o. at bedtime. 8. Norvasc 5 mg p.o. b.i.d. This is a new medication. FOLLOW UP: Ms. Pompa is being discharged back home with family. She is to take all medications as prescribed and follow up with Dr. Rahat Mcginnis within the week. She can return to the ED or call 911 for any worsening of symptoms. Dictated by JEFFREY Woodard for Manny Harvey MD cc: MD Manny rOtiz MD
--- NOTE | 2019-06-08 10:40 | DISCHARGE SUMMARY ---
ADMISSION DATE: 06/04/2019 DISCHARGE DATE: 06/06/2019 DISCHARGE ADDENDUM: Patient seen and examined by myself. Full note dictated and discussed with nurse practitioner. Patient presented to the hospital with chest pain. Noted to have mild to moderate mitral regurgitation with an ejection fraction of 60%. Blood pressure are elevated, thankfully continued to improve. On discharge, she is awake, alert. Her symptoms have improved. She is having no further chest pains and therefore we will discharge her home. Please see full dictation. cc: Manny Harvey MD
--- NOTE | 2019-06-09 11:13 | PROVIDER DOCUMENTATION ---
This chart was entered by Ashlee Davila Scribe, acting as scribe for Rahat Howe MD. HPI-Respiratory General - General Chief Complaint: Shortness of Breath Stated Complaint: SOB Time Seen by Provider: 06/04/19 12:19 Source: patient Allergies/Adverse Reactions: Patient Allergies Allergy/AdvReac Type Severity Reaction Status Date / Time levofloxacin [From Levaquin] Allergy Mild ITCHING Verified 09/29/18 11:39 dopamine Allergy SWELLING Verified 09/29/18 11:39 Home Medications: Home Medication List Medication Instructions Recorded Confirmed Last Taken Type Gabapentin [Neurontin] 100 mg PO QHS 03/18/17 06/04/19 06/04/19 History 100 MG ATORVAstatin [Lipitor] 40 mg PO QHS #30 tablet 04/24/17 06/04/19 06/04/19 Rx 40 MG Furosemide [Lasix] 20 mg PO DAILY 09/29/18 06/04/19 06/04/19 History 20 MG Omeprazole [Prilosec] 20 mg PO DAILY@0700 09/29/18 06/04/19 06/04/19 History 20 MG RAMIpril [Altace] 5 mg PO DAILY 09/29/18 06/04/19 06/04/19 History 5 MG Sennosides/Docusate Sodium 1 each PO BID 09/29/18 06/04/19 06/04/19 History [Senna-S Tablet] 1 EACH Meclizine HCl [Antivert] 25 mg PO DIRECTED 06/04/19 06/04/19 Unknown History Amlodipine [Norvasc] 5 mg PO BID #60 tab 06/06/19 Unknown Rx - History of Present Illness-Resp Nature of Presenting Problem: 84 y/o female presents to the ED with complaint of SOB, wheezing, and bilateral arm pain from shoulders to elbows as well as generalized discomfort worsening over the past few days. The patient states her has albuterol treatments which she used today without relief of symptoms. Denies fever, bloody stools, and n/v/d. She also gives a history of multiple previous pneumonia diagnoses. Quality of Pain: reports: aching Onset/Duration: reports: 3 days ago Timing: reports: getting worse Exposure: reports: unknown cause Cough Quality/Degree: reports: no cough Current Respiratory Medication Therapy: Initiated see nurses note Associated Symptoms: reports: shortness of breath, wheezing. denies: cough, fever/chills Similar Symptoms Previously?: Yes Recently seen or treated by another doctor?: No Review of Systems - Adult - REVIEW OF SYSTEMS - ADULT Constitutional: denies: chills Eyes: reports: no symptoms reported Ears, Nose, Mouth & Throat: reports: no symptoms reported Cardiovascular: reports: chest pain (tightness/squeezing). denies: palpitations (intermittent), syncope Respiratory: reports: shortness of breath, wheezing. denies: cough Gastrointestinal: denies: diarrhea, nausea, rectal bleeding, vomiting Genitourinary: reports: no symptoms reported Musculoskeletal: reports: other (bilateral upper extremity pain shoulders to elbows). denies: joint swelling, neck pain Integumentary: reports: no symptoms reported Neurological: reports: no symptoms reported Psychiatric: reports: no symptoms reported Endocrine: reports: no symptoms reported Hematologic/Lymphatic: reports: no symptoms reported Allergic/Immunologic: reports: no symptoms reported All Other Systems: Reviewed and Negative Past History - Adult - PAST MEDICAL HISTORY-ADULT Review of Records: reports: Old Records Reviewed, Nursing Assessment Review, Medications Reviewed Major Childhood Illnesses: reports: denies history Cardiovascular: reports: A-Fib, CHF, HTN, hyperlipidemia Respiratory: reports: pneumonia (frequent, aspiration) Gastrointestinal: reports: GERD Obstetrical/Gynecological: reports: denies history Genitourinary: reports: denies history Musculoskeletal: reports: chronic pain (back), intervertebral disc disease Neurological: reports: denies history Psychiatric: reports: depression Endocrine/Immune: reports: Diabetes Other Conditions: reports: other cancer (Non-Hodgkins Lymphoma) - PRIOR SURGERIES/PROCEDURES Surgical/Procedure History: reports: appendectomy, cholecystectomy, hysterectomy , back/neck (recent back surgery) - IMMUNIZATION STATUS Childhood Immunizations: See Nurse Assessment Flu Vaccine: See Nurse Assessment - FAMILY HISTORY Family History: reviewed, not pertinent - SOCIAL HISTORY Smoking: quit greater than 1 year Substance Use: denies Physical Exam-General - PHYSICAL EXAM-ADULT Initial Vital Signs Reviewed: Yes - CONSTITUTIONAL General Appearance: alert, mild distress, other (tremulous/hard of hearing) - EYES Eyes: other (swelling left orbital region) - HEAD, EARS, NOSE, MOUTH & THROAT HENMT: normocephalic/atraumatic - NECK Neck: non-tender, supple. negative: carotid bruit, lymphadenopathy - RESPIRATORY Respiratory: wheezing (expiratory), other (abdominal push). negative: rales, rhonchi - CARDIOVASCULAR Cardiovascular: no gallop, irregularly irregular, other (bilateral leg edema) - GASTROINTESTINAL (ABDOMEN) Abdominal Exam: non tender, soft. negative: distended, guarding - MUSCULOSKELETAL Extremity: pedal edema (bilateral pretibial). negative: pulse deficit - SKIN Integumentary: normal color, warm/dry. negative: diaphoresis Progress - PLAN OF CARE/RESULTS Progress/Plan/Lab Results: Orders Category Date Time Status Admit - [facility] Routine AdmDCTranf 06/04/19 16:37 Active Activity - Up with Assistance ORDERED Care 06/04/19 16:37 Active Apply Mechanical Device [QM] ORDERED Care 06/04/19 16:37 Active Cardiac Monitoring DIRECTED Care 06/04/19 12:14 Completed Intake and Output-Strict ORDERED Care 06/04/19 16:37 Active Nursing- Assist w/ IS as order ORDERED Care 06/04/19 16:37 Active Oxygen Therapy- ED Nursing DIRECTED Care 06/04/19 12:14 Completed Saline Loc DIRECTED Care 06/04/19 16:37 Completed Saline Loc NOW Care 06/04/19 12:14 Completed Turn, Cough and Deep Breathe Q4HR.AWAKE Care 06/04/19 16:37 Active Vital Signs Order Q 4-HR ASSESS Care 06/04/19 16:37 Active Z-Document. for Tele Applied ORDERED Care 06/04/19 16:37 Completed Heart Healthy Diet Diet 06/04/19 16:38 Completed CHEST-PORTABLE [RAD] Stat Exams 06/04/19 13:12 Completed ABG [RESP] Routine Lab 06/04/19 13:26 Completed CBC WITH DIFF [HEME] Routine Lab 06/05/19 05:36 Completed CBC WITH ELECTRONIC DIFF [HEME] Stat Lab 06/04/19 12:41 Completed CK PROFILE [SP CHEM] Stat Lab 06/04/19 12:41 Completed COMPREHENSIVE METABOLIC PANEL [CHEM] Routine Lab 06/05/19 05:36 Completed COMPREHENSIVE METABOLIC PANEL [CHEM] Stat Lab 06/04/19 12:41 Completed PRO B-NATRIURETIC PEPTIDE Stat Lab 06/04/19 12:41 Completed PROTIME WITH INR [COAG] Stat Lab 06/04/19 12:41 Completed PTT [COAG] Stat Lab 06/04/19 12:41 Completed TROPONIN T Stat Lab 06/04/19 12:41 Completed TSH Stat Lab 06/04/19 12:41 Completed Acetaminophen [Tylenol] Med 06/04/19 16:37 Discontinued 650 mg PO Q6H PRN PRN Albuterol 2.5MG/Ipratrop 0.5MG [Duoneb (A & A)] Med 06/04/19 15:23 Discontinued 3 ml INH Q2H PRN PRN Albuterol 2.5MG/Ipratrop 0.5MG [Duoneb (A & A)] Med 06/04/19 15:30 Discontinued 3 ml INH RTQ4H Aspirin Med 06/04/19 12:14 Discontinued 300 mg OR NOW ONE Aspirin Med 06/04/19 12:14 Discontinued 325 mg PO NOW ONE Ondansetron [Zofran] Med 06/04/19 16:37 Discontinued 4 mg IV Q4H PRN PRN Aerosol Treatments Routine Ot 06/04/19 15:24 Completed Aerosol Treatments Stat Ot 06/04/19 15:24 Completed Incentive Spirometer Q4HR.AWAKE Ot 06/04/19 17:00 Completed Incentive Spirometer Q4HR.AWAKE Ot 06/04/19 21:00 Completed Incentive Spirometer Q4HR.AWAKE Ot 06/05/19 01:00 Completed Incentive Spirometer Q4HR.AWAKE Ot 06/05/19 05:00 Completed Incentive Spirometer Q4HR.AWAKE Ot 06/05/19 09:00 Completed Incentive Spirometer Q4HR.AWAKE Ot 06/05/19 13:00 Completed Oxygen Device Routine Ot 06/04/19 16:37 Completed Peak Flow BID Ot 06/04/19 21:00 Completed Peak Flow BID [facility] 06/05/19 09:00 Completed Telemetry [OM.EQ] Routine Ot 06/04/19 16:37 Active EKG [EKG] Stat Ther 06/04/19 12:14 Draft Transfer/Admit Order [TRANSFER] Routine Transfer 06/04/19 14:57 Completed Result Diagrams: 06/06/19 05:05 06/06/19 05:05 - REASSESSMENT Reassessment #1 Time Reassessed: 13:48 Reassessment Comment: Physician at bedside - EKG 1 Time of EKG reading by physician:: 12:30 EKG Read and Signed by:: Rahat Howe EKG Interpretation (*Must complete 3 of following elements*): Abnormal Rate: 73 Rhythm: NSR w/premature atrial complexes Comments: ventricular pre-exciatation, WPW pattern type B - XRAY 1 XRAY Study: Chest (EXAM: CHEST-PORTABLE HISTORY: chest pain TECHNIQUE: Portable chest COMPARISON: 09/29/2018 FINDINGS: The lungs are well expanded. The heart is not enlarged. The vessels are not distended. There are no infiltrates. No effusion identified. Right jugular portacatheter is unchanged. IMPRESSION: Stable chest. Electronically signed by Moisés Ramos 06/04/2019 1:36 PM) Comparison with other Films: no changes - CONSULTS/PCP/HOSPITALIST Notification #1 *Consult/PCP/Hospitalist*: Catie Wheatleyist Time Discussed: 14:42 Reason/Comments: Bradycardia, abnormal gases and labs Consult Disposition: Admit Departure - Departure Date of Disposition Decision: 06/04/19 Time of Disposition Decision: 14:46 DIAGNOSIS: Sinus bradycardia, COPD (chronic obstructive pulmonary disease), Hypercholesterolemia Disposition: ADMITTED INPATIENT 09 Certified Medical Emergency: Emergent Condition: Stable - Critical Care Note This patient required my direct & personal management of CC.: No Attestation - Physician/ SHADI Attestation Patient care was provided by Advanced Practice Provider:: No The physician spent face to face time with patient:: Yes Advanced Practice Provider documentation review:: Supervising physician onsite and consulted in the evaluation and care of this patient. The physician did have a face to face encounter with the patient. This chart was documented by the indicated scribe, (Ashlee Davila Scribe) and accurately reflects the services I performed and decisions made by me, Rahat Howe MD, as attested by the provider's signature.
--- NOTE | 2019-07-06 04:50 | CONSULTATION ---
DATE OF CONSULTATION: 07/05/2019 IMPRESSION: 1. Atrial fibrillation with rapid ventricular rate with associated angina. Patient has converted back to sinus bradycardia. 2. Paroxysmal atrial fibrillation in the past, previously controlled with amiodarone which was discontinued in 2016 due to tendency for sinus bradycardia, and probable sinus node dysfunction. 3. Coronary atherosclerosis. Coronary angiography in 2005 reportedly demonstrated mild coronary atherosclerosis. 4. Chronic back disorder and gait instability. Patient previously had a tendency for frequent falls, and for that reason she has not been on anticoagulation. She has had progressive difficulty, and now gets around in a wheelchair. 5. Hypertension. 6. Type 2 diabetes mellitus. 7. Hyperlipidemia. 8. Non-Hodgkin's lymphoma in remission. 9. Chronic back disorder/chronic back pain. RECOMMENDATIONS: 1. Given tendency for sinus bradycardia that is apparently chronic. We will hold off on giving any further diltiazem. 2. Serial cardiac enzymes. 3. Continue aspirin p.o. daily. She has a tendency for falling, and is probably not a suitable candidate for anticoagulation. 4. She had a fairly significant tachycardia response to atrial fibrillation, and yet in sinus rhythm demonstrates significant sinus bradycardia with heart rate in the 40 to 50 beat per minute range. Although she is not symptomatic from her bradycardia at present, efforts to initiate rate control medications of amiodarone may be met with excessive bradycardia. Her atrial fibrillation appears to be significant to the point that it caused rapid ventricular rate with associated angina and small non ST elevation myocardial infarction based on demand ischemia. I will discuss her case with arrhythmia service, and consider merits of permanent pacemaker which would facilitate safely initiating rate control medications and/or amiodarone. 5. Follow up echocardiography. HISTORY: This 84-year-old white female with a past history of paroxysmal atrial fibrillation in the past, coronary atherosclerosis, hypertension, hyperlipidemia, type 2 diabetes mellitus, non- Hodgkin's lymphoma in remission, chronic back pain disorder, and significant gait instability related to her back problem was admitted to the emergency room this morning after she had presented with angina, and was found to be in atrial fibrillation with rapid ventricular rate. She was given intravenous Cardizem in the emergency room. Her heart rate slowed, and she ultimately converted back to sinus bradycardia. Her angina resolved. She reports that she awoke around 6:00 this morning with burning substernal chest discomfort. She was not really aware of her tachyarrhythmia. She did not really appreciate any palpitations. After her burning chest discomfort persisted about 30 minutes, she summoned the EMS who brought her to the emergency room at [facility]. She relates a few instances of burning chest discomfort over the last several days, but episodes were really brief. She has had a tendency for gait instability and frequent falls. For this reason, she has not been anticoagulated for thromboembolic risk protection with her atrial fibrillation. She also previously had been maintained on amiodarone, and this seemed to have been working to control her paroxysmal atrial fibrillation. This was discontinued in 2016 due to significant bradycardia that was rather persistent with heart rate in the 40 to 50 beat per minute range. She has not had any syncope. Her ability to ambulate has deteriorated to the point that she is now getting around in a wheelchair. Nevertheless, she manages to live at home with her who is described as being in worse health than she is in. They have caregivers coming during the day to help with care at home. PAST MEDICAL HISTORY: 1. Paroxysmal atrial fibrillation. 2. Coronary atherosclerosis. 3. Non-Hodgkin's lymphoma in remission. 4. Hypertension. 5. Hyperlipidemia. 6. Type 2 diabetes mellitus. 7. Chronic back pain disorder. 8. Chronic gait instability now progressed to the point where she gets around in a wheelchair. 9. Coronary atherosclerosis. 10. Gastroesophageal reflux disease. PAST SURGICAL HISTORY: 1. Appendectomy. 2. Cholecystectomy. 3. Three separate lower back procedures. ALLERGIES: She is allergic to levofloxacin and dopamine. MEDICATIONS: Medications prior to admission as listed. SOCIAL HISTORY: She is and lives at home with her . She does not smoke, but drinks alcohol. FAMILY HISTORY: Negative for premature coronary disease. REVIEW OF SYSTEMS: Pulmonary: Negative. Gastroenterology: Noncontributory beyond history of present illness. Constitutional: Noncontributory. Remainder of Review of Systems negative/noncontributory beyond history of present illness with 14 total systems reviewed. PHYSICAL EXAMINATION: General: This is a pleasant elderly white female in no distress on supplemental oxygen. Vital Signs: Blood pressure 112/47, heart rate 50 and regular with ECG monitor showing sinus rhythm with frequent premature supraventricular complexes. Oxygen saturation 96%. HEENT: Extraocular muscles appear intact. Mucous membranes are moist. Neck: Supple without jugular venous distention. There are no carotid bruits. Lungs: Chest is clear to auscultation. Cardiovascular: Regular bradycardia without appreciable murmur or gallop. Abdomen: Soft. Bowel sounds normal. Extremities: Without edema. Neurologic: Reveals her to be alert and fully oriented. Speech is fluent. She moves all 4 extremities equally well. Skin: Warm and dry. Psychiatric: Mood is appropriate. PERTINENT DATA: Twelve lead ECG obtained on presentation this morning at 06:41 in the morning demonstrates atrial fibrillation with rapid ventricular rate. Left axis deviation and left bundle branch block. Repeat ECG this morning at 08:57 in the morning demonstrates atrial fibrillation with a heart rate of 82 beats per minute, left axis deviation and left bundle branch block. ECG at 10:00 in the morning today demonstrates sinus bradycardia, left ventricular hypertrophy with repolarization abnormalities, and leftward axis. Laboratory data includes a white blood cell count of 17.24, hematocrit 38.1, hemoglobin 12.1, and platelet count 246,000. Sodium 141, potassium 3.6, chloride 95, carbon dioxide 29, BUN 30, and creatinine 1.1. Glucose 215. Troponin initially at 1.41. Follow-up troponin 1.41 and troponin this evening 1.72. Initial CPK 94 with follow up CPK 116 to 147. TSH 0.14. cc: Quinn Obando MD
== END 2019-06-06 10:46 | disposition home or self-care (01) | DRG 313 ==
LOC: P.ED 12:07 → SUATTDRO 15:29 → P.MEDSURG 15:29
PROVIDERS: ATTEND Family Medicine

== ENCOUNTER 2019-07-05 08:32 | Inpatient (IN) ==
[2019-07-05] MEDS ORDERED: CARDIZEM IV ONE ×2 (08:48→09:13)
[2019-07-05 09:13] LABS: BASO# 0.02 X1000 (0.0-0.2); BASO% 0.1 % (0.0-0.8); EOS# 0.02 X1000 (0.0-0.7); EOS% 0.1 % (0.0-10.0); HEMATOCRIT 38.1 % (37.0-47.0); HEMOGLOBIN 12.1 g/dL (12.0-16.0); IMM GRAN# 0.19 X1000 (0.0-0.04); IMM GRAN% 1.1 % (0.0-0.5); LYMPH# 3.27 X1000 (1.2-3.4); MCH 27.4 PG (27-31); MCHC 31.8 g/dL (33-37); MCV 86.2 FL (81-99); MONO# 1.23 X1000 (0.11-0.59); MONO% 7.1 % (1.7-9.3); MPV 13.6 FL (7.4-10.4); NEUT# 12.51 X1000 (1.4-6.5); NEUT% 72.6 % (42.2-75.2); PLT 246 X1000 (130-400); RBC 4.42 XMIL (4.2-5.4); RDW 16.6 % (11.5-14.5); WBC 17.24 X1000 (4.8-10.8)
--- NOTE | 2019-07-05 09:14 | PROVIDER DOCUMENTATION ---
HPI-Chest Pain - General Chief Complaint: Chest Pain Stated Complaint: CP, SOB Time Seen by Provider: 07/05/19 09:09 Source: patient Allergies/Adverse Reactions: Patient Allergies Allergy/AdvReac Type Severity Reaction Status Date / Time levofloxacin [From Levaquin] Allergy Mild ITCHING Verified 09/29/18 11:39 dopamine Allergy SWELLING Verified 09/29/18 11:39 Home Medications: Home Medication List Medication Instructions Recorded Confirmed Last Taken Type Gabapentin [Neurontin] 100 mg PO QHS 03/18/17 07/05/19 06/04/19 History 100 MG ATORVAstatin [Lipitor] 40 mg PO QHS #30 tablet 04/24/17 07/05/19 06/04/19 Rx 40 MG Furosemide [Lasix] 20 mg PO DAILY 09/29/18 07/05/19 06/04/19 History 20 MG Omeprazole [Prilosec] 20 mg PO DAILY@0700 09/29/18 07/05/19 06/04/19 History 20 MG RAMIpril [Altace] 5 mg PO DAILY 09/29/18 07/05/19 06/04/19 History 5 MG Sennosides/Docusate Sodium 1 each PO BID 09/29/18 07/05/19 06/04/19 History [Senna-S Tablet] 1 EACH Meclizine HCl [Antivert] 25 mg PO DIRECTED 06/04/19 07/05/19 Unknown History Amlodipine [Norvasc] 5 mg PO BID #60 tab 06/06/19 07/05/19 Unknown Rx Albuterol Sulfate [Albuterol 8.5 gm INHALATION Q4-6H PRN PRN #1 06/28/19 07/05/19 Unknown Rx Sulfate Hfa] hfa.aer.ad Prednisone 50 mg PO DAILY #5 tab 06/28/19 07/05/19 Unknown Rx - History of Present Illness-CP Nature of Presenting Problem: 84 yo female reports palpitations and CP onset 2 hr ago. ASA 81 x 4 and sl nitro by EMS reduced pain from 10/10 to 8/ao. Reports hx intermittent a fib and RVR. Here last week. no BP meds this morn. reports CP 8/10 w/ SOB,NAUSEA,VOMITNG,CLAMMY SEATS. felt ok yesterday. no fever or cough or dysuria or diarrhea. Review of Systems - Adult - REVIEW OF SYSTEMS - ADULT Constitutional: reports: no symptoms reported. denies: chills, fever Eyes: reports: no symptoms reported Ears, Nose, Mouth & Throat: reports: no symptoms reported Cardiovascular: reports: see HPI Respiratory: reports: see HPI Gastrointestinal: reports: no symptoms reported Genitourinary: reports: no symptoms reported Musculoskeletal: reports: no symptoms reported Integumentary: reports: no symptoms reported Neurological: reports: no symptoms reported Psychiatric: reports: no symptoms reported Endocrine: reports: no symptoms reported Hematologic/Lymphatic: reports: no symptoms reported Allergic/Immunologic: reports: no symptoms reported All Other Systems: Reviewed and Negative Past History - Adult - PAST MEDICAL HISTORY-ADULT Review of Records: reports: Nursing Assessment Review, Medications Reviewed, Social history reviewed & non-contributory. Major Childhood Illnesses: reports: denies history Cardiovascular: reports: A-Fib (EKG SHOWS SINUS RYTHM ON 06/28/19), CHF, HTN, hyperlipidemia Respiratory: reports: COPD, pneumonia (frequent, aspiration) Gastrointestinal: reports: GERD Obstetrical/Gynecological: reports: denies history Genitourinary: reports: denies history Musculoskeletal: reports: chronic pain (back), intervertebral disc disease Neurological: reports: denies history Psychiatric: reports: depression Endocrine/Immune: reports: Diabetes Other Conditions: reports: other cancer (Non-Hodgkins Lymphoma) - PRIOR SURGERIES/PROCEDURES Surgical/Procedure History: reports: appendectomy, cholecystectomy, hysterectomy , back/neck (recent back surgery) - IMMUNIZATION STATUS Childhood Immunizations: See Nurse Assessment Flu Vaccine: See Nurse Assessment - FAMILY HISTORY Family History: reviewed, not pertinent Physical Exam-General - PHYSICAL EXAM-ADULT Initial Vital Signs Reviewed: Yes - CONSTITUTIONAL General Appearance: mild distress - EYES Eyes: PERRL/EOMI - HEAD, EARS, NOSE, MOUTH & THROAT HENMT: normocephalic/atraumatic, moist mucous membranes, normal ENT inspection - NECK Neck: supple - RESPIRATORY Respiratory: lungs clear, normal breath sounds, no respiratory distress, no accessory muscle use. negative: respiratory distress, crackles, rales, rhonchi, stridor, wheezing - CARDIOVASCULAR Cardiovascular: no edema, tachycardia - GASTROINTESTINAL (ABDOMEN) Abdominal Exam: normal bowel sounds, non tender, soft - MUSCULOSKELETAL Extremity: non-tender, no pedal edema - SKIN Integumentary: normal color, normal turgor, warm/dry - NEUROLOGIC Neurologic: senior project architect II-XII nml as tested, grossly normal - PSYCHIATRIC Psych/Mental Status: normal mood/affect, normal thought content, normal thought process, oriented x 3 - HEART Score HEART Score: History: Highly Suspicious HEART Score: ECG: Non-Specific Repolarization Disturbance/LBBB/PM HEART Score: Age: > or = 65 Years HEART Score: Risk Factors for Atherosclerotic Disease: > or = 3 Risk Factors or History of Atherosclerotic Disease HEART Score: Troponin: 1-3x Normal Limit Total HEART Score:: 8 Progress - PLAN OF CARE/RESULTS Progress/Plan/Lab Results: Vital Signs - 8 hr 07/05/19 08:44 07/05/19 08:45 07/05/19 08:49 Temperature 98.4 F Pulse Rate 155 H Respiratory Rate 22 22 Blood Pressure 164/125 164/102 164/101 O2 Sat by Pulse Oximetry 96 96 96 07/05/19 08:58 07/05/19 09:00 07/05/19 09:13 Temperature Pulse Rate 78 75 80 Respiratory Rate 20 23 23 Blood Pressure 138/67 146/81 114/83 O2 Sat by Pulse Oximetry 96 95 95 07/05/19 09:15 07/05/19 09:16 07/05/19 09:30 Temperature Pulse Rate 138 H 142 H 80 Respiratory Rate 30 H 19 15 Blood Pressure 128/92 130/88 O2 Sat by Pulse Oximetry 94 L 95 95 07/05/19 09:46 07/05/19 10:00 Temperature Pulse Rate 73 53 L Respiratory Rate 18 18 Blood Pressure 165/126 143/65 O2 Sat by Pulse Oximetry 96 97 Laboratory Results - last 24 hr 07/05/19 07/05/19 07/05/19 08:55 08:55 08:55 WBC 17.24 H RBC 4.42 Hgb 12.1 Hct 38.1 MCV 86.2 MCH 27.4 MCHC 31.8 L RDW Std Deviation 16.6 H Plt Count 246 MPV 13.6 H Immature Gran % (Auto) 1.1 H Neut % (Auto) 72.6 Lymph % (Auto) 19.0 L [place] % (Auto) 7.1 Eos % (Auto) 0.1 Baso % (Auto) 0.1 Immature Gran # (Auto) 0.19 H Neut # (Auto) 12.51 H Lymph # (Auto) 3.27 Waller # (Auto) 1.23 H Eos # (Auto) 0.02 Baso # (Auto) 0.02 PT 15.5 INR 1.21 PTT (Actin FS) 21.6 L Sodium 141 Potassium 3.6 Chloride 95 L Carbon Dioxide 29 Anion Gap 17 BUN 30 H Creatinine 1.1 H Estimated GFR/1.73 m2 48 BUN/Creatinine Ratio 27 Glucose 215 H Calculated Osmolality 294 Calcium 9.1 Total Bilirubin 0.57 AST 37 H ALT 26 Alkaline Phosphatase 98 Creatine Kinase 94 Troponin T Total Protein 6.7 Albumin 3.9 Globulin 2.8 Albumin/Globulin Ratio 1.4 Plasma Lactate Urine Source Urine Color Urine Turbidity Urine pH Ur Specific [place] Urine Protein Ur Glucose (Stick) Ur Ketones (Stick) Urine Blood Urine Nitrite Urine Bilirubin Urobilinogen Dipstick Urine Leukocytes Urine WBC (Auto) Urine RBC (Auto) U Epithel Cells (Auto) Urine Bacteria (Auto) 07/05/19 07/05/19 07/05/19 08:55 08:55 11:00 WBC RBC Hgb Hct MCV MCH MCHC RDW Std Deviation Plt Count MPV Immature Gran % (Auto) Neut % (Auto) Lymph % (Auto) [place] % (Auto) Eos % (Auto) Baso % (Auto) Immature Gran # (Auto) Neut # (Auto) Lymph # (Auto) [place] # (Auto) Eos # (Auto) Baso # (Auto) PT INR PTT (Actin FS) Sodium Potassium Chloride Carbon Dioxide Anion Gap BUN Creatinine Estimated GFR/1.73 m2 BUN/Creatinine Ratio Glucose Calculated Osmolality Calcium Total Bilirubin AST ALT Alkaline Phosphatase Creatine Kinase Troponin T 1.410 H* Total Protein Albumin Globulin Albumin/Globulin Ratio Plasma Lactate 4.3 H* Urine Source CLEAN CATCH Urine Color YELLOW Urine Turbidity CLEAR Urine pH 6.5 Ur Specific [place] 1.017 Urine Protein 100 A Ur Glucose (Stick) 1000 A Ur Ketones (Stick) NEGATIVE Urine Blood NEGATIVE Urine Nitrite NEGATIVE Urine Bilirubin NEGATIVE Urobilinogen Dipstick NORMAL Urine Leukocytes NEGATIVE Urine WBC (Auto) <10 Urine RBC (Auto) <10 U Epithel Cells (Auto) <10 Urine Bacteria (Auto) NEGATIVE 07/05/19 07/05/19 11:20 11:20 WBC RBC Hgb Hct MCV MCH MCHC RDW Std Deviation Plt Count MPV Immature Gran % (Auto) Neut % (Auto) Lymph % (Auto) [place] % (Auto) Eos % (Auto) Baso % (Auto) Immature Gran # (Auto) Neut # (Auto) Lymph # (Auto) [place] # (Auto) Eos # (Auto) Baso # (Auto) PT INR PTT (Actin FS) Sodium Potassium Chloride Carbon Dioxide Anion Gap BUN Creatinine Estimated GFR/1.73 m2 BUN/Creatinine Ratio Glucose Calculated Osmolality Calcium Total Bilirubin AST ALT Alkaline Phosphatase Creatine Kinase 116 Troponin T 1.410 H* Total Protein Albumin Globulin Albumin/Globulin Ratio Plasma Lactate Urine Source Urine Color Urine Turbidity Urine pH Ur Specific [place] Urine Protein Ur Glucose (Stick) Ur Ketones (Stick) Urine Blood Urine Nitrite Urine Bilirubin Urobilinogen Dipstick Urine Leukocytes Urine WBC (Auto) Urine RBC (Auto) U Epithel Cells (Auto) Urine Bacteria (Auto) Orders Category Date Time Status Cardiac Monitoring DIRECTED Care 07/05/19 08:51 Active Burrell Cath Insertion ORDERED Care 07/05/19 10:02 Active IV Insertion ORDERED Care 07/05/19 08:51 Completed Notify MD of + Sepsis Screen NOW Care 07/05/19 08:51 Active Notify Physician As Ordered Care 07/05/19 08:51 Active CHEST-1 VIEW [RAD] Stat Exams 07/05/19 08:51 Completed BLOOD CULTURE [BLDCUL] Stat Lab 07/05/19 08:55 Results CBC WITH DIFF [HEME] Stat Lab 07/05/19 08:55 Completed CK PROFILE [SP CHEM] Stat Lab 07/05/19 08:55 Completed CK PROFILE [SP CHEM] Stat Lab 07/05/19 11:20 Completed COMPREHENSIVE METABOLIC PANEL [CHEM] Stat Lab 07/05/19 08:55 Completed LACTATE, PLASMA [CHEM] Lab 07/05/19 12:11 Ordered LACTATE, PLASMA [CHEM] Lab 07/05/19 15:00 Uncollected LACTATE, PLASMA [CHEM] Q3H Lab 07/05/19 08:55 Completed PROTIME WITH INR [COAG] Stat Lab 07/05/19 08:55 Completed PTT [COAG] Stat Lab 07/05/19 08:55 Completed TROPONIN T Stat Lab 07/05/19 08:55 Completed TROPONIN T Stat Lab 07/05/19 11:20 Completed URINALYSIS W/POSS RFLX CULT [URINALYSIS] Stat Lab 07/05/19 11:00 Completed 0.9% Sodium Chloride Inj [Ns] 500 ml Med 07/05/19 09:32 Discontinued IV 999 mls/hr CefTRIAXONE [Rocephin] Med 07/05/19 09:58 Discontinued 1 gm IM NOW ONE CefTRIAXONE [Rocephin] 1 gm Med 07/05/19 10:00 Discontinued 0.9% Sodium Chloride Inj [Ns] 50 ml IV NOW Diltiazem 125 mg/D5w [Cardizem 125 mg/D5w] Med 07/05/19 09:15 Active 125 mg in 125 ml IV As Directed mls/hr Diltiazem [Cardizem] Med 07/05/19 08:48 Discontinued 20 mg IV NOW ONE Diltiazem [Cardizem] Med 07/05/19 09:13 Discontinued 20 mg IV NOW ONE Lidocaine 1% Pf [Xylocaine-Mpf 1%] Med 07/05/19 09:58 Discontinued 5 ml INJ NOW ONE Morphine Med 07/05/19 09:15 Discontinued 4 mg IV NOW ONE Ondansetron [Zofran] Med 07/05/19 09:15 Discontinued 4 mg IV NOW ONE Oxygen Device Stat Oth 07/05/19 08:51 Active EKG [EKG] Stat Ther 07/05/19 08:41 Draft EKG [EKG] Stat Ther 07/05/19 08:57 Draft EKG [EKG] Stat Ther 07/05/19 10:08 Draft Result Diagrams: 07/05/19 08:55 07/05/19 08:55 - REASSESSMENT Reassessment #1 Time Reassessed: 09:51 Status: unchanged (TROP 1.41, L.A.=4.3, DOSE ROCEPHIN AN 500 ML NS BUT HOLD ON TRUE FLUID BOLUS CXR READS PUL EDEMA., PAGING DR SANCHEZ TO ADMIT.) Reassessment #2 Time Reassessed: 10:11 Status: improving (INITAL HTN,CP,SOB. CARIDZEM 20MG /W SYST 161/ AND HR 160 DOWN TO BP 138/, HR A FIB 78, TACHYCARDIA RETURNED, 2ND CARDIZEM. BP STAYED SL LOW AND CASRDIZEM GTT HELD. BY 10AM, CONVERTED BACK TO SINUS AT 55/MIN.) - EKG 1 Time of EKG reading by physician:: 08:42 EKG Read and Signed by:: Rk Miles EKG Interpretation (*Must complete 3 of following elements*): Abnormal Rate: 150 Rhythm: A FIB [place]: left QRS: LBB ST Wave: non-specific ST changes Comments: A FIB W/ RVR @ 150/min 2 Time of EKG reading by physician:: 08:57 EKG Read and Signed by:: Rk Miles EKG Interpretation (*Must complete 3 of following elements*): Abnormal Rate: 82 Rhythm: A FIB [place]: left QRS: LBB Comments: A FIB @82/min 3 Time of EKG reading by physician:: 10:13 EKG Read and Signed by:: Rk Miles EKG Interpretation (*Must complete 3 of following elements*): Abnormal Rate: 55 Rhythm: SINUS QRS: poor R wave progression Comments: SINUS BARADY W/ SEPTAL Q - CONSULTS/PCP/HOSPITALIST Notification #1 *Consult/PCP/Hospitalist*: DR SANCHEZ ([facility]) Time Discussed: 10:07 Consult Disposition: Admit (ICU) #2 Consult: dr HEDRICK,CARDIOL Time Discussed: 12:05 ([facility] HERE, [facility]) Departure - Departure Date of Disposition Decision: 07/05/19 Time of Disposition Decision: 10:08 DIAGNOSIS: Non-STEMI (non-ST elevated myocardial infarction), Leukocytosis, Chest pain due to CAD, COPD (chronic obstructive pulmonary disease), Nausea vomiting and diarrhea Sepsis Qualifiers: Sepsis type: sepsis due to unspecified organism Acute renal failure type: unspecified Severe sepsis shock status: with septic shock Pulmonary edema Qualifiers: Chronicity: acute Qualified Code(s): J81.0 - Acute pulmonary edema Disposition: ADMITTED INPATIENT 09 Certified Medical Emergency: Emergent Condition: Fair Referrals and Follow-Ups: Rahat Mcginnis MD [Primary Care Provider] - - Critical Care Note This patient required my direct & personal management of CC.: Yes Total Time (mins): 32 Critical Care Statement: This patient required my direct personal management to treat or rule out processes, the absence of which, could potentiallly result in sudden, clinically significant life or limb threatening deterioration. Attestation - Physician/ SHADI Attestation The physician spent face to face time with patient:: Yes Advanced Practice Provider documentation review:: Supervising physician onsite and consulted in the evaluation and care of this patient. The physician did have a face to face encounter with the patient.
[2019-07-05] MEDS ORDERED: ZOFRAN IV ONE (09:15)
[2019-07-05] MEDS ORDERED: MORPHINE IV ONE (09:15)
[2019-07-05] MEDS ORDERED: CARDIZEM 125 MG/D5W 125 MG/125 ML IVPB IV SCH (09:15)
[2019-07-05 09:23] LABS: INR 1.21; PROTIME 15.5 Seconds (11.0-16.0)
[2019-07-05 09:24] LABS: PTT 21.6 Seconds (22.3-41.8)
[2019-07-05 09:28] LABS: ALBUMIN 3.9 g/dL (3.5-5.0); CALCIUM 9.1 mg/dL (8.8-10.2); CREATININE 1.1 mg/dL (0.5-0.9); POTASSIUM 3.6 mmol/L (3.5-5.1); TOTAL BILIRUBIN 0.57 mg/dL (0.20-1.00); TOTAL PROTEIN 6.7 g/dL (6.3-8.3)
[2019-07-05 09:29] LABS: ALB/GLOB RATIO 1.4
[2019-07-05] MEDS ORDERED: NS 500 ML IV ONE (09:32)
--- NOTE | 2019-07-05 09:53 | Diag Imaging Result Doc PS360 ---
CHEST-1 VIEW - 07/05/2019 INDICATION: cp/sob COMPARISON: 06/28/2019 FINDINGS: Stable right chest port. Stable cardiomegaly and pulmonary vascular congestion. There are some ill-defined curly B lines in the lung bases indicating interstitial pulmonary edema. No significant pleural effusion. IMPRESSION: Cardiomegaly and pulmonary edema. Electronically signed by Ruddy Viveros 07/05/2019 9:51 AM
[2019-07-05] MEDS ORDERED: ROCEPHIN IM ONE (09:58)
[2019-07-05] MEDS ORDERED: XYLOCAINE-MPF 1% INJ ONE (09:58)
[2019-07-05] MEDS ORDERED: ROCEPHIN 1 GM in NS 50 ML IV ONE (10:00)
--- NOTE | 2019-07-05 11:03 | EKG Report ---
Test Performed on : 07/05/2019 08:57:29 AM Test Reason : AFLUTTER Blood Pressure : / mmHG Vent. Rate : 082 BPM Atrial Rate : 319 BPM P-R Int : 000 ms QRS Dur : 128 ms QT Int : 416 ms P-R-T Axes : 000 -38 134 degrees QTc Int : 486 ms Atrial flutter. with variable AV block. Left axis deviation Left bundle branch block Abnormal ECG When compared with ECG of 05-JUL-2019 08:41, (Unconfirmed) Atrial flutter. has replaced Atrial fibrillation. Vent. rate has decreased BY [address] no longer depressed in Inferior leads Unconfirmed Result
--- NOTE | 2019-07-05 11:03 | EKG Report ---
Test Performed on : 07/05/2019 08:41:33 AM Test Reason : CP Blood Pressure : / mmHG Vent. Rate : 150 BPM Atrial Rate : 150 BPM P-R Int : 000 ms QRS Dur : 126 ms QT Int : 338 ms P-R-T Axes : 000 -42 143 degrees QTc Int : 534 ms Atrial fibrillation. with rapid ventricular response. Left axis deviation Left bundle branch block Abnormal ECG When compared with ECG of 28-JUN-2019 21:55, (Unconfirmed) Atrial fibrillation. has replaced Sinus rhythm. Vent. rate has increased BY 62 BPM Left bundle branch block is now present Minimal criteria for Septal infarct are no longer present Unconfirmed Result
--- NOTE | 2019-07-05 11:03 | EKG Report ---
Test Performed on : 07/05/2019 10:08:20 AM Test Reason : RHYTHM CHANGE Blood Pressure : / mmHG Vent. Rate : 055 BPM Atrial Rate : 055 BPM P-R Int : 156 ms QRS Dur : 094 ms QT Int : 464 ms P-R-T Axes : 068 -28 147 degrees QTc Int : 443 ms Sinus bradycardia. Left ventricular hypertrophy with repolarization abnormality Cannot rule out Septal infarct , age undetermined Abnormal ECG When compared with ECG of 05-JUL-2019 08:57, (Unconfirmed) Sinus rhythm. has replaced Atrial flutter. Vent. rate has decreased BY 27 BPM Left bundle branch block is no longer present Minimal criteria for Septal infarct are now present Unconfirmed Result
[2019-07-05 11:27] LABS: URINE SOURCE CLEAN CATCH
[2019-07-05 11:32] LABS: BILIRUBIN URINE NEGATIVE (NEGATIVE); BLOOD URINE NEGATIVE (NEGATIVE); COLOR YELLOW; GLUCOSE URINE 1000 mg/dL (NEGATIVE); KETONE URINE NEGATIVE (NEGATIVE); PH URINE 6.5; SP GRAVITY URINE 1.017; TURBIDITY URINE CLEAR (CLEAR)
[2019-07-05 11:33] LABS: LEUKOCYTES URINE NEGATIVE (NEGATIVE); NITRITE URINE NEGATIVE (NEGATIVE); PROTEIN URINE 100 mg/dL (NEGATIVE); UROBILINOGEN URINE NORMAL (NORMAL)
[2019-07-05 11:34] LABS: UR EPITHELIAL CELLS <10 /HPF (<10); URINE BACTERIA NEGATIVE /HPF; URINE RBC <10 /HPF (<10); URINE WBC <10 /HPF (<10)
[2019-07-05] MEDS ORDERED: ZOFRAN IV PRN (13:55)
[2019-07-05] MEDS ORDERED: NS 1,000 ML IV SCH (14:00)
[2019-07-05] MEDS ORDERED: LIPITOR PO SCH (14:45)
[2019-07-05] MEDS ORDERED: CATAPRES PO ONE (14:57)
[2019-07-05] MEDS ORDERED: NORVASC PO ONE (14:57)
[2019-07-05] MEDS: ZOSYN 3.375 GM in NS 50 ML IV SCH ×2 (15:35→20:04)
[2019-07-05] MEDS: LOVENOX SUBQ SCH (15:37)
[2019-07-05] MEDS: ZYVOX PO SCH ×2 (16:33→20:04)
[2019-07-05] MEDS: LIPITOR PO SCH (20:04)
[2019-07-05] MEDS ORDERED: DOXYCYCLINE PO SCH (21:00)
--- NOTE | 2019-07-05 22:50 | HISTORY AND PHYSICAL ---
CHIEF COMPLAINT: Nausea, vomiting and chest pain. HISTORY OF PRESENT ILLNESS: This is an 84-year-old female with a prior history of non-Hodgkin lymphoma, hypertension, paroxysmal atrial fibrillation, coronary artery disease, who presents to the emergency room complaining of feeling like her heart was racing out of her chest with accompanying chest pressure and nausea and vomiting x 2 hours. She reports vomiting x 1, which relieved symptoms. On arrival to the emergency room, she was noted to have a heart rate of 155. EKG revealed atrial fibrillation with rapid ventricular response. She was given 20 mg of Cardizem IV push in the emergency room. Heart rates have slowed staying in the 50 to 65 range. The patient stated that after her chest pain and chest pressure relieved once her heart rate slowed down. Ms. Pompa was admitted to the hospital in 06/04/2019 with chest pain. At this time, echocardiogram was performed which revealed an EF of 60% with left ventricular hypertrophy associated with diastolic dysfunction and a left bundle branch block noted. In the emergency room Ms. Pompa was found to have a troponin of 1.[address] Obando in Cardiology was consulted. The patient was discussed with Dr. Obando per the emergency room physician, who recommended that the patient be admitted to ICU and monitored. PAST MEDICAL HISTORY: 1. Non-Hodgkin lymphoma in remission. 2. Hypertension. 3. Hyperlipidemia. 4. Diabetes mellitus type 2. 5. Chronic pain syndrome. 6. Coronary artery disease. 7. Gastroesophageal reflux disease. 8. Paroxysmal atrial fibrillation. 9. Frequent falls. PAST SURGICAL HISTORY: Appendectomy, cholecystectomy, laminectomy. SOCIAL HISTORY: She lives with family members. She denies any alcohol, tobacco, or illicit drug use. ALLERGIES: Levaquin which causes itching and dopamine which causes swelling. HOME MEDICATIONS: The patient takes no home medications at present. She states that she did not fill medications on her discharge on 06/07/2019. REVIEW OF SYSTEMS: Discussed with patient with pertinent positives stated in the HPI. She denied any syncope or dizziness, any nausea, any black or bloody vomitus or stools, any diarrhea, constipation, any hematuria, dysuria, frequency, urgency. PHYSICAL EXAMINATION: GENERAL: This is an 84-year-old female who is sitting up in the bed in the emergency room in no distress. VITAL SIGNS: Blood pressure is 186/80 with a heart rate of 65, respirations are 18, temperature is 98.4 degrees with O2 saturations 95 97%. CARDIOVASCULAR: Regular rate and rhythm. S1 and S2 appreciated. EXTREMITIES: She has no lower extremity edema. Calves are nontender with peripheral pulses palpable x4 extremities. PULMONARY: Breath sounds are clear with no increased work of breathing noted. Chest rises and falls symmetric respiration. GASTROINTESTINAL: Abdomen is soft, nontender, nondistended with bowel sounds in all 4 quadrants. : She has no CVA or suprapubic tenderness. NEUROLOGIC: She is alert and oriented x3. LABS: WBC has 17.2 with hemoglobin 12.1, hematocrit 38.1, and platelets 246,000. Sodium 141, potassium 3.6, BUN 30, creatinine 1.1 with a glucose 215. Troponin is 1.410 x 2 with a TSH of 0.14. Blood cultures are pending. EKG at 8:41 revealed atrial fibrillation with rapid ventricular response at a rate of 150. She did have some ST depression noted in leads in the ventricular leads. EKG at 8:57 revealed a rate of 82. EKG at 10 a.m. revealed sinus bradycardia at a rate of [address] depression in leads 4, 5 and 6. ASSESSMENT AND PLAN: 1. Non-ST elevation myocardial infarction. The patient will be admitted to intensive care unit. We will continue to trend cardiac enzymes and troponins, check lipid panel and repeat EKGs. Cardiology will be consulted. 2. Leukocytosis. This very well could be likely to aspiration as she does have a history of aspiration pneumonia and she did have she stated some violent vomiting episodes prior to coming to the emergency room. STart Zyvox and Zosyn, further antibiotics will be culture driven. 3. Blood cultures were obtained in the emergency room 4. Acute kidney injury. We rehydrate and trend labs. Renal dose medications. 5. History of non-Hodgkin lymphoma. 6. History of hypertension. 7. Diabetes mellitus type 2. Pattern blood glucose with sliding scale insulin. 8. History of coronary artery disease. Aware. 9. History of paroxysmal atrial fibrillation. Lovenox 1 mg/kg subcutaneous q.12 hours. CBC and CMP in the morning. NPO after midnight pending cardiology's evaluation. Plan discussed with Dr Retana. Further treatments pending hospital course. Thank you. Patient seen and examined by me face to face, all the laboratory, vitals signs and images were reviewed, patient presented with chest pain, elevated troponin, st depression, episodes of bradycardia and also has been having episodes of a fib with RVR, she has been admitted due to NSTEMI, she has been placed on anticoagulation, fluids due to CHANO, she will probably need a cardiac cath, transfer to ICU, cardiology department on board, I agree with the rest of the [employer]PERVISOR's assessment and plan, Francisco Javier Sheppard MD. Dictated by JEFFREY Cullen for Francisco Javier Medina MD cc: JEFFREY Cullen MD [facility]
[2019-07-06] MEDS: ZOSYN 3.375 GM in NS 50 ML IV SCH ×4 (04:31→22:30)
[2019-07-06] MEDS: LOVENOX SUBQ SCH ×2 (04:32→17:00)
[2019-07-06] MEDS ORDERED: VANCOMYCIN IV PER PHARMACY MISC SCH (05:45)
[2019-07-06 05:48] LABS: BASO# 0.01 X1000 (0.0-0.2); BASO% 0.1 % (0.0-0.8); EOS# 0.12 X1000 (0.0-0.7); HEMATOCRIT 34.6 % (37.0-47.0); HEMOGLOBIN 10.8 g/dL (12.0-16.0); IMM GRAN% 0.8 % (0.0-0.5); LYMPH# 3.46 X1000 (1.2-3.4); LYMPH% 28.2 % (20.5-51.1); MCH 27.3 PG (27-31); MCHC 31.2 g/dL (33-37); MCV 87.6 FL (81-99); MONO# 0.89 X1000 (0.11-0.59); MONO% 7.3 % (1.7-9.3); MPV 13.3 FL (7.4-10.4); NEUT# 7.67 X1000 (1.4-6.5); NEUT% 62.6 % (42.2-75.2); PLT 210 X1000 (130-400); RBC 3.95 XMIL (4.2-5.4); WBC 12.25 X1000 (4.8-10.8)
[2019-07-06] MEDS ORDERED: VANCOMYCIN 1,350 MG in NS 250 ML IV ONE (06:00)
[2019-07-06 06:17] LABS: AGAP 11; ALB/GLOB RATIO 1.3; ALBUMIN 3.1 g/dL (3.5-5.0); ALKALINE PHOSPHATASE 79 U/L (32-104); BUN 26 mg/dL (8-22); CALCIUM 7.6 mg/dL (8.8-10.2); CHLORIDE 98 mmol/L (98-107); CHOLESTEROL 128 mg/dL (0-200); COSMO 284; CREATININE 0.9 mg/dL (0.5-0.9); ESTIMATED GFR 60; GLUCOSE 134 mg/dL (70-104); GOT 28 U/L (10-30); GPT 18 U/L (10-36); HDL 50 mg/dL (45-65); LDL 48 mg/dL; POTASSIUM 3.2 mmol/L (3.5-5.1); SODIUM 139 mmol/L (136-145); TCO2 30 mmol/L (25-35); TOTAL BILIRUBIN 0.42 mg/dL (0.20-1.00); TOTAL PROTEIN 5.5 g/dL (6.3-8.3); TRIGLYCERIDES 148 mg/dL (35-135); VLDL 30 mg/dL
[2019-07-06] MEDS ORDERED: PRILOSEC PO SCH (07:00)
--- NOTE | 2019-07-06 07:25 | EKG Report ---
Test Performed on : 07/06/2019 07:13:09 AM Test Reason : elevated trop Blood Pressure : / mmHG Vent. Rate : 053 BPM Atrial Rate : 053 BPM P-R Int : 162 ms QRS Dur : 096 ms QT Int : 568 ms P-R-T Axes : 074 -22 210 degrees QTc Int : 532 ms Sinus bradycardia. with premature atrial complexes. in a pattern of bigeminy. Left ventricular hypertrophy with repolarization abnormality Cannot rule out Septal infarct (cited on or before 05-JUL-2019) Prolonged QT Abnormal ECG When compared with ECG of 05-JUL-2019 10:08, (Unconfirmed) premature atrial complexes. are now present QT has lengthened Confirmed by Comfort WALTER, Maurilio Steele ([id number]) on 07/06/2019 8:36:17 AM
[2019-07-06] MEDS ORDERED: ZYVOX 600 MG/D5W 600 MG/300 ML IVPB IV SCH (07:30)
[2019-07-06] MEDS ORDERED: POTASSIUM CHLORIDE 40 MEQ/SWI 40 MEQ/100 ML IVPB IV SCH (08:00)
[2019-07-06] MEDS ORDERED: SODIUM CHLORIDE 0.9% INJ SCH (08:45)
[2019-07-06] MEDS: POTASSIUM CHLORIDE 20 MEQ/SWI 20 MEQ/100 ML IVPB IV SCH ×2 (08:57→09:43)
[2019-07-06] MEDS: NS 1,000 ML IV SCH (08:57)
[2019-07-06] MEDS: PROTONIX IV SCH (09:43)
[2019-07-06] MEDS: ZYVOX 600 MG/D5W 600 MG/300 ML IVPB IV SCH ×2 (09:43→21:17)
--- NOTE | 2019-07-06 10:00 | PROGRESS NOTE ---
DATE: 07/06/2019 SUBJECTIVE: As per the patient, she is having some discomfort at the level of the periumbilical area and some chest discomfort as well, but no pressure. She is not having nausea or vomiting. No headache. No shortness of breath. She has been bradycardic mostly in the 40s and 50s. Occasionally, she can drop to the high 30s. She has been treated for a non ST elevation myocardial infarction. Cardiology Department following this patient closely. We do have also positive blood culture 1/2 that showed gram-positive cocci, and she has been placed on antibiotics already. OBJECTIVE: Vital Signs: Temperature 96.6, pulse 50, respiratory rate 18, blood pressure 163/71, and oxygen saturation 97% on room air. HEENT: Head normocephalic. No trauma. PERRLA. Neck: Supple. No JVD. No masses. Central trachea. Chest: Clear to auscultation. No wheezing. No rales. Cardiovascular: Bradycardic. Abdomen: Soft. There is some tenderness to palpation at the level of the periumbilical area. Extremities: No edema. No clubbing. No cyanosis. There is some deformity due to probably arthritis. Neurological: The patient is alert. She is following commands. She is oriented x2, not oriented to time. LABORATORY: WBC 12.2, hemoglobin 10.8, hematocrit 34.6, and platelets 210,000. Sodium 139, potassium 3.2, chloride 98, bicarbonate 30, BUN 26, creatinine 0.9, glucose 134, calcium 7.6, troponin's 1.9, and albumin 3.1. ASSESSMENT AND PLAN: 1. Non ST elevation myocardial infarction. Continue treating this patient in the intensive care unit. Continue the same management. She has been placed on anticoagulation. Cardiology on board. 2. Leukocytosis getting better. Continue with same management. 3. Positive blood culture that showed gram-positive cocci 1/2. This patient has been placed on Zyvox. We will monitor for now. 4. Acute kidney injury. Her creatinine upon admission was 1.1. Probably, this is her baseline, but today 0.9, better compared with yesterday so we will continue with same management. 5. History of non-Hodgkin's lymphoma. Aware. 6. History of hypertension. Continue with same treatment and management. 7. Type 2 diabetes. Continue pattern blood sugar and sliding scale insulin. 8. History of coronary artery disease, now presented with DC. 9. History of paroxysmal atrial fibrillation, aware. CRITICAL CARE TIME: 35 minutes. cc: Francisco Javier Medina MD
[2019-07-06] MEDS ORDERED: ROCEPHIN 1 GM in NS 50 ML IV SCH (11:00)
--- NOTE | 2019-07-06 19:29 | CARDIOLOGY PROGRESS NOTE ---
DATE: 07/06/2019 SUBJECTIVE: The patient continues asymptomatic from a cardiovascular standpoint. She continues in sinus bradycardia. OBJECTIVE: Blood pressure 191/79. Heart rate 50 to 55 beats per minute with ECG monitor showing sinus bradycardia. Oxygen saturation 97%. There is no significant jugular venous distention. Chest is clear to auscultation. Cardiac exam reveals a regular rate and rhythm without appreciable murmur or gallop. There is no evidence of peripheral edema. LABORATORY DATA: Includes a white blood cell count of 12.25, hematocrit 34.6, hemoglobin 10.8, platelet count 210,000. Sodium 139, potassium 3.2, chloride 98, carbon dioxide 30, BUN 26, creatinine 0.9, glucose 134. Initial troponin T 1.410, followup troponin T of 1.72, and third troponin T 1.94. Initial CPK 94, followup CPK 116, 147, 126. Preliminary blood culture reports at least 1 blood culture positive for gram-positive cocci. DIAGNOSTIC DATA: Echocardiography result pending. IMPRESSION: 1. Atrial fibrillation with rapid ventricular rate and associated small [id number] myocardial infarction, likely provoked by stress of sustained tachycardia. 2. Sinus node dysfunction with tendency for sinus bradycardia. 3. Coronary atherosclerosis. 4. Hypertension. 5. Hyperlipidemia. 6. Type 2 diabetes mellitus. 7. Gait instability. Patient no longer ambulatory and uses wheelchair. 8. Positive blood culture. RECOMMENDATIONS: 1. Continue observation in ICU. 2. Permanent pacemaker needed, given apparent tachycardia-bradycardia syndrome. 3. Given positive blood culture, clarification will need to be obtained regarding significance prior to permanent pacemaker implant. 4. Conservative cardiovascular management overall. Best management would be to have a pacemaker and suppress atrial fibrillation with amiodarone. Thereafter, medical management of coronary atherosclerosis/angina would be most appropriate in light of her functional limitations and age. Certainly, invasive modalities of management of coronary disease may need to be considered should she have refractory angina despite suppressing her atrial fibrillation and medical management for coronary atherosclerosis/angina. cc: Quinn Obando MD
[2019-07-06] MEDS: LIPITOR PO SCH (21:16)
--- NOTE | 2019-07-06 23:13 | EKG Report ---
Test Performed on : 07/06/2019 9:07:54 PM Test Reason : elevatedtroponin Blood Pressure : / mmHG Vent. Rate : 055 BPM Atrial Rate : 055 BPM P-R Int : 148 ms QRS Dur : 098 ms QT Int : 496 ms P-R-T Axes : 066 -21 156 degrees QTc Int : 474 ms Sinus bradycardia. with sinus arrhythmia. Left ventricular hypertrophy with repolarization abnormality Abnormal ECG When compared with ECG of 06-JUL-2019 07:13, premature atrial complexes. are no longer present QT has shortened Confirmed by Comfort WALTER, Maurilio Steele ([id number]) on 07/07/2019 9:01:07 AM
[2019-07-07] MEDS: LOVENOX SUBQ SCH (03:34)
[2019-07-07] MEDS: ZOSYN 3.375 GM in NS 50 ML IV SCH ×2 (03:35→09:51)
[2019-07-07] MEDS ORDERED: NORVASC PO ONE (03:41)
[2019-07-07 04:57] LABS: BASO# 0.01 X1000 (0.0-0.2); BASO% 0.1 % (0.0-0.8); EOS# 0.23 X1000 (0.0-0.7); EOS% 1.6 % (0.0-10.0); HEMATOCRIT 37.4 % (37.0-47.0); HEMOGLOBIN 11.8 g/dL (12.0-16.0); IMM GRAN# 0.11 X1000 (0.0-0.04); IMM GRAN% 0.8 % (0.0-0.5); LYMPH# 3.04 X1000 (1.2-3.4); LYMPH% 21.3 % (20.5-51.1); MCH 27.6 PG (27-31); MCHC 31.6 g/dL (33-37); MCV 87.6 FL (81-99); MONO# 1.23 X1000 (0.11-0.59); MONO% 8.6 % (1.7-9.3); MPV 13.2 FL (7.4-10.4); NEUT# 9.65 X1000 (1.4-6.5); NEUT% 67.6 % (42.2-75.2); PLT 208 X1000 (130-400); RBC 4.27 XMIL (4.2-5.4); WBC 14.27 X1000 (4.8-10.8)
[2019-07-07 05:35] LABS: CREATININE 0.9 mg/dL (0.5-0.9)
[2019-07-07] MEDS ORDERED: APRESOLINE IV PRN (07:17)
[2019-07-07] MEDS: NS 1,000 ML IV SCH (08:03)
[2019-07-07] MEDS: PROTONIX IV SCH (08:03)
[2019-07-07] MEDS ORDERED: NORVASC PO SCH (09:00)
[2019-07-07] MEDS ORDERED: LOPRESSOR IV ONE ×3 (10:50→11:13)
--- NOTE | 2019-07-07 10:53 | EKG Report ---
Test Performed on : 07/07/2019 10:46:05 AM Test Reason : TACHYCARDIA/CP Blood Pressure : / mmHG Vent. Rate : 154 BPM Atrial Rate : 144 BPM P-R Int : 000 ms QRS Dur : 124 ms QT Int : 284 ms P-R-T Axes : 000 -36 144 degrees QTc Int : 454 ms Atrial fibrillation. with rapid ventricular response. , cannot exclude ventricular tachycardia Left axis deviation Left bundle branch block Abnormal ECG When compared with ECG of 07-JUL-2019 07:50, (Unconfirmed) Atrial fibrillation. has replaced Sinus rhythm. Vent. rate has increased BY 87 BPM Left bundle branch block is now present Criteria for Anteroseptal infarct are no longer present Confirmed by Comfort WALTER, Maurilio Steele ([id number]) on 07/09/2019 8:18:09 AM
--- NOTE | 2019-07-07 11:03 | PROGRESS NOTE ---
DATE: 07/07/2019 SUBJECTIVE: This patient is still complaining of some discomfort at the level of the chest, some pressure. She is not having nausea, vomiting, or headache. No shortness of breath. Her heart rate has been mostly in the 50s, she has been having high blood pressure. Cardiology Department following this patient closely. We have a positive culture that showed coagulase-negative Staphylococcus which is a contamination. OBJECTIVE: Vital Signs: Temperature 97.2 degrees, pulse 57, respiratory rate 18, blood pressure 181/77, oxygen saturation 96 on room air. HEENT: Head normocephalic. No trauma. PERRLA. Neck: Supple. No JVD. No masses. Central trachea. Chest: Clear to auscultation. No wheezing. No rales. Cardiovascular: Bradycardic, irregular rate. Abdomen: Soft. There is some tenderness to palpation at the level of the periumbilical area. Extremities: No edema. No clubbing. No cyanosis. Some deformity due to probably arthritis. Neurological: The patient is alert. She is following commands. She is oriented x2. She is not oriented to time. LABORATORY DATA: WBC 14.2, hemoglobin 11.8, hematocrit 37.4, platelets 208,000. Sodium 136, potassium 4, chloride 99, bicarbonate 27, BUN 19, creatinine 0.9, glucose 116, calcium 8. ASSESSMENT AND PLAN: 1. Non-ST elevation myocardial infarction, continue treatment per Cardiology Department. Continue in the intensive care unit. She has been placed on anticoagulation. Cardiology on board. 2. Leukocytosis, continue with same management. She is on antibiotics. 3. Positive blood culture that showed 1/2 gram-positive cocci, now is showing coagulase-negative Staphylococcus aureus, which is a contamination. 4. Acute kidney injury, resolved. 5. History of non-Hodgkin's lymphoma. Aware. 6. Hypertension. Continue with management per Cardiology recommendations. 7. Type 2 diabetes. Continue pattern of blood sugar and sliding scale insulin. 8. History of coronary artery disease, now presented with an SC. 9. History of paroxysmal atrial fibrillation, with rapid ventricular response during this hospitalization. Aware, rate controlled. cc: Francisco Javier Medina MD
[2019-07-07] MEDS ORDERED: LOPRESSOR ONE (11:10)
--- NOTE | 2019-07-07 11:21 | EKG Report ---
Test Performed on : 07/07/2019 07:50:33 AM Test Reason : RHYTHM CHECK Blood Pressure : / mmHG Vent. Rate : 067 BPM Atrial Rate : 054 BPM P-R Int : 162 ms QRS Dur : 098 ms QT Int : 466 ms P-R-T Axes : 077 -13 135 degrees QTc Int : 492 ms Sinus bradycardia. with premature atrial complexes. with aberrant conduction. Left ventricular hypertrophy with repolarization abnormality Anteroseptal infarct (cited on or before 07-JUL-2019) Abnormal ECG When compared with ECG of 07-JUL-2019 07:49, (Unconfirmed) premature atrial complexes. are now present Confirmed by Comfort WALTER, Maurilio Steele ([id number]) on 07/09/2019 8:16:14 AM
[2019-07-07] MEDS ORDERED: CORDARONE 150 MG/D5W 150 MG/100 ML IV.SOLN ONE (11:27)
[2019-07-07] MEDS ORDERED: CORDARONE 150 MG/D5W 150 MG/100 ML IV.SOLN IV ONE (11:32)
[2019-07-07] MEDS ORDERED: CORDARONE 360 MG/D5W 360 MG/200 ML IV.SOLN IV ONE (11:47)
[2019-07-07] MEDS ORDERED: CORDARONE 360 MG/D5W 360 MG/200 ML IV.SOLN ONE (11:48)
[2019-07-07 12:13] VITALS: BP 105/76
[2019-07-07] MEDS ORDERED: CORDARONE 540 MG in D5W 289.2 ML IV ONE (17:47)
[2019-07-08] MEDS ORDERED: VANCOMYCIN IV SCH (06:00)
[2019-07-08] MEDS ORDERED: NS IV SCH (06:00)
--- NOTE | 2019-07-08 14:33 | DISCHARGE SUMMARY ---
ADMISSION DATE: 07/05/2019 DISCHARGE DATE: 07/07/2019 DISCHARGE DIAGNOSES: 1. Non ST elevation myocardial infarction. Atrial fibrillation with rapid ventricular response. 2. Sinus node dysfunction with tendency for sinus bradycardia. 3. Coronary atherosclerosis. 4. Hypertension. 5. Hyperlipidemia. 6. Type 2 diabetes. 7. Gait instability, it looks like this patient is no longer ambulatory and uses a wheelchair, possible new left-sided weakness. 8. Acute kidney injury, resolved. 9. History of non-Hodgkin's lymphoma, aware. PROCEDURES PERFORMED: Chest x-ray dated 07/05/2019, impression: Cardiomegaly and pulmonary edema. Multiple EKGs showing atrial fibrillation with RVR, some others showing sinus bradycardia with repolarization abnormality. HOSPITAL COURSE: 84-year-old female past medical history of non- Hodgkin lymphoma, hypertension, paroxysmal atrial fibrillation, coronary artery disease, who presented to the emergency department and was admitted on 07/05/2019 complaining of tachycardia and chest pressure, nausea and vomiting. She states that after vomiting, symptoms relieved somewhat. And the symptoms really started 2 hours prior to coming to the emergency room, her heart rate initially was 155. EKG showed atrial fibrillation with rapid ventricular response. She was given treatment and then the heart rate slowed down into the 50s and 65 range. The patient states that after her chest pain and chest pressure relieved once the heart rate slowed. The patient states that after the treatment, the chest pain and pressure improved a little bit, we noticed also the troponins to be elevated x2 sets. Cardiology Department was consulted and the diagnosis of atrial fibrillation RVR was placed along with non-ST elevation myocardial infarction and sinus node dysfunction with tendency for sinus bradycardia, he also had a positive blood culture, but is likely a contamination since this is 1/2 coagulase-negative Stap, Cardiology Department communicated with [facility]. This patient will be transferred, it is believed that the best management will be to have a pacemaker and suppress the atrial fibrillation with amiodarone, probably this patient will need to be also treated medically afterwards. Given her functional limitations and age, she has been transferred today to [facility], Cardiology Department already made arrangements. OBJECTIVE: Vital Signs: Temperature 98.6 degrees, pulse 123, respiratory rate 19, blood pressure 105/76, oxygen saturation 100% on 2 L of nasal cannula. HEENT: Head normocephalic, no trauma. PERRLA. Neck: Is supple. No JVD. No masses. Central trachea. Chest: Clear to auscultation. No wheezing. No rales. Cardiovascular: Irregularly irregular rate and rhythm, tachycardic. Abdomen: Soft. Some tenderness to palpation at the level of the periumbilical area. Extremities: No edema. No clubbing. Neurological: The patient is alert. She is following commands. She is oriented x2. She has some weakness at the level of the left upper and lower extremity. LABORATORY: WBC 14.2, hemoglobin 11.8, hematocrit 37.4, platelets 208,000 sodium 136, potassium chloride 99, bicarbonate 27, BUN 18, creatinine 0.9, glucose 116, calcium 8. ASSESSMENT AND PLAN: As per the patient, she has been having some left upper and lower extremity weakness on and off for the past couple days, maybe more, she does have a history of dementia, so I am not quite sure if this is a real acute problem or not, but given her functional status and her current condition, she has been transferred to [facility] for further treatment. TIME DISCHARGING THIS PATIENT: 25 minutes. cc: Francisco Javier Medina MD MTDD
== END 2019-07-07 12:40 | disposition short-term general hospital (02) | DRG 281 ==
LOC: SUPCPDRO → ED 08:32 → ICU 15:04
PROVIDERS: ATTEND Internal Medicine